=== PATIENT | female | born 1990 | race Caucasian/White ===

== ENCOUNTER 2018-10-30 01:30 | Inpatient (IN) | payer MEDICAID, SELFPAY ==
[2018-10-30] VITALS (16 sets, daily range): BP systolic 88–166; BP diastolic 46–92; PULSE 57–144; RESP 14–24; TEMP 36.3–39.5; O2SAT 94–100; BMI 20.7; BMI 24.0
--- NOTE | 2018-10-30 01:39 | ED.RN ---
PT STATES SHE IS ACHY ALL OVER AND HAS THE CHILLS. PT HAS OPEN SOARS ON HER FACE AND LEFT ARM. MANY HEALING AND SCARRED RAHMAN ON HER ARMS AND HANDS.
--- NOTE | 2018-10-30 01:41 | RAD_ITS ---
STUDY: X-RAY CHEST REASON FOR EXAM: Female, 27 years old. Fever and body aches, sores on body and face. TECHNIQUE: Single AP portable view of the chest. COMPARISON: None. FINDINGS: There are superimposed monitor leads. There is no demonstrated pneumothorax. Mild interstitial prominence. There is no demonstrated pleural abnormality. Normal size heart. Normal mediastinum and rey. Normal visualized pulmonary arteries. Normal visualized aortic arch and descending thoracic aorta. Normal visualized thoracic spine. Normal visualized ribs, clavicles, and shoulders. There is no demonstrated abnormality of the visualized soft tissue structures of the upper abdomen. RAD/Chest 1 View (Portable) IMPRESSION: Possible mild interstitial inflammation. No pulmonary edema, congestive heart failure or confluent pneumonia. Electronically Signed: Kesha Noriega MD at 3:37 EDT , Service support ,
--- NOTE | 2018-10-30 01:41 | EKG12_ITS ---
Test Reason : TACHYCARDIA Blood Pressure : / mmHG Vent. Rate : 124 BPM Atrial Rate : 124 BPM P-R Int : 124 ms QRS Dur : 084 ms QT Int : 274 ms P-R-T Axes : 050 -07 046 degrees QTc Int : 393 ms Sinus tachycardia Otherwise normal ECG Confirmed by JOSS NUNEZ, NORMA ([id number]), newspaper or periodical editor FARHAN WORTHINGTON ([id number]) on 11/01/2018 1:48:42 PM Referred By: Otis Sorto Confirmed By:JOSE COREAS MD
--- NOTE | 2018-10-30 01:43 | ED.RN ---
NO OLD EKGS IN MUSE
--- NOTE | 2018-10-30 01:45 | ED.VIS.GEN ---
History of Present Illness Chief Complaint: Fever Narrative: Patient is a 27-year-old female who presents with fever. She has been sick for about 1 day. She has had fever up to 103. She complains of diffuse pain. She complains of myalgias, arthralgias, chest pain, abdominal pain, headache. She also feels short of breath. She reports nausea without vomiting. No diarrhea. No urinary symptoms such as dysuria frequency or urgency. No cough. No congestion. She is an IV drug user, uses heroin. She denies alcohol or any other illicit drugs. She denies any medical history or daily medications. Past Medical History - Allergies and Home Meds Allergies/Adverse Reactions: Allergies No Known Allergies Allergy (Verified 10/30/18 01:35) Primary Care Physician: NOT,DEFINED [Primary Care Provider] - Past Medical History: - - IV heroin abuse Surgical History: no surgical history Smoking Status: Current every day smoker Review of Systems All systems negative except as indicated General: Reports: Fever Cardiovascular: Reports: Chest pain Respiratory: Reports: Dyspnea. Denies: Cough Gastrointestinal: Reports: Abdominal pain, Nausea. Denies: Vomiting, Diarrhea Musculoskeletal: Reports: Myalgias, Arthralgias Neurological: Reports: Headache Physical Exam Vital Signs/Narrative: Vital Signs Temp Pulse Resp BP Pulse Ox 10/30/18 01:31 103.1 F H 144 H 20 H 166/92 H 100 Inital Vital Signs reviewed: Yes General: - - Ill-appearing Head: Normocephalic Eyes: EOMI ENT: Moist mucous membranes Neck: Supple Cardiovascular: - - Heart is regular tachycardia with a 2/6 systolic murmur Respiratory: - - Tachypnea with increased work of breathing but lungs are clear without rales rhonchi or wheezes Abdomen: Soft, Nontender, Nondistended Back: Normal Inspection Extremities: Nontender, No edema Skin: - - No petechiae, [place] lesions, splinter hemorrhages Neurological: Alert, Oriented x3 Diagnostic/Tx/Re-eval 10/30/18 01:41 Chest 1 View (Portable) [RAD] Stat Laboratory Results 10/30/18 10/30/18 10/30/18 02:00 02:04 02:20 WBC 5.5 RBC 4.14 L Hgb 11.6 L Hct 34.9 L MCV 84.3 MCH 28.0 MCHC 33.2 RDW Std Deviation 39.1 RDW Coeff of Aminah 12.7 Plt Count 172 MPV 10.1 Immature Gran % (Auto) 0.600 Neut % (Auto) 84.1 H Lymph % (Auto) 13.0 L [place] % (Auto) 1.7 Eos % (Auto) 0.0 Baso % (Auto) 0.6 Absolute Neuts (auto) 4.6 Absolute Lymphs (auto) 0.71 L Nucleated RBC % 0 Differential Comment SCANNED PT INR Specimen Type ART Sample Site R Radial pH 7.52 H Bicarbonate Actual 18.4 L POC Total CO2 19 Base Excess -4 L O2 Saturation 97 ABG pCO2 22.5 L ABG pO2 75 Osmin Test POS O2 Delivery Device Room Air Blood Gas Notified Whom ED Blood Gas Notified Time 200 Sodium Potassium Chloride Carbon Dioxide Anion Gap BUN Creatinine Estim Creat Clear Calc Est GFR (MDRD) Af Amer Est GFR (MDRD) Non-Af BUN/Creatinine Ratio Glucose Lactic Acid Calcium Total Bilirubin AST ALT Alkaline Phosphatase Troponin I Total Protein Albumin Globulin Albumin/Globulin Ratio Urine Color [place] Urine Clarity Cloudy Urine pH 5.0 Ur Specific [place] 1.025 Urine Protein 30 H Urine Glucose (UA) Normal Urine Ketones 5 H Urine Occult Blood 25 H Urine Nitrite Negative Urine Bilirubin Negative Urine Urobilinogen 1 H Ur Leukocyte Esterase 500 H Urine RBC 0-5 SEEN Urine WBC 25-50 SEEN Ur Squamous Epith Cells 25-50 SEEN Urine Bacteria 3+ Urine Mucus 1+ 10/30/18 10/30/18 10/30/18 02:20 02:20 02:30 WBC RBC Hgb Hct MCV MCH MCHC RDW Std Deviation RDW Coeff of Aminah Plt Count MPV Immature Gran % (Auto) Neut % (Auto) Lymph % (Auto) [place] % (Auto) Eos % (Auto) Baso % (Auto) Absolute Neuts (auto) Absolute Lymphs (auto) Nucleated RBC % Differential Comment PT 15.4 H INR 1.2 Specimen Type Sample Site pH Bicarbonate Actual POC Total CO2 Base Excess O2 Saturation ABG pCO2 ABG pO2 Osmin Test O2 Delivery Device Blood Gas Notified Whom Blood Gas Notified Time Sodium 128 L Potassium 3.1 L Chloride 95 L Carbon Dioxide 24.0 Anion Gap 9 BUN 10 Creatinine 0.89 Estim Creat Clear Calc 86.49 Est GFR (MDRD) Af Amer 98 Est GFR (MDRD) Non-Af 81 BUN/Creatinine Ratio 11.2 Glucose 137 H Lactic Acid 3.0 H Calcium 8.3 L Total Bilirubin 0.60 AST 33 ALT 45 Alkaline Phosphatase 106 Troponin I < 0.015 Total Protein 7.1 Albumin 2.9 L Globulin 4.2 Albumin/Globulin Ratio 0.7 L Urine Color Urine Clarity Urine pH Ur Specific [place] Urine Protein Urine Glucose (UA) Urine Ketones Urine Occult Blood Urine Nitrite Urine Bilirubin Urine Urobilinogen Ur Leukocyte Esterase Urine RBC Urine WBC Ur Squamous Epith Cells Urine Bacteria Urine Mucus - Medical Decision Making Patient is ill-appearing. Concern is for bacteremia with her history of IV drug abuse. Given that she does have a systolic murmur I am also concerned for the possibility of infective endocarditis. She was treated with aggressive IV fluid hydration and empirically given Zosyn and vancomycin. EKG shows sinus tachycardia at a rate of 124. ABG, pH is 7.52. Labs notable for lactic acid of 3.0 and urinalysis suggestive of UTI although contaminated. Blood and urine cultures were sent. On reevaluation temperature is down to 100.3 heart rate improved to 100-110. She has maintained a stable blood pressure. Patient will be discussed with the hospitalist and admitted for further work-up and treatment. ED Disposition - Plan for ED Patient: Disposition: Acute Care Hospital [facility] Diagnosis: Severe sepsis, IV drug abuse Referrals: NOT,DEFINED [Primary Care Provider] -
[2018-10-30 02:11] LABS: Allen Test POS; Base Excess -4 mmol/L (-2 to +2); Bicarbonate 18.4 mmol/L (22-26); Blood Gas Specimen Type ART; O2 Delivery Device Room Air; PO2 75 mmHG (75-100); SITE R Radial; SO2 97 % (95-99); Time Given 200; Total Carbon Dioxide 19 mmol/L; pCO2 22.5 mmHg (35-45); pH 7.52 (7.35-7.45)
[2018-10-30 02:18] LABS: Color, Urine Amber (Yellow); Glucose, Dipstick Normal (Normal); Ketone-Dipstick 5 mg/dl (Negative); Leukocyte Esterase-Dipstick 500 /ul (Negative); Nitrite-Dipstick Negative (Negative); Occult Blood-Urine 25 /ul (Negative); Protein-Dipstick 30 mg/dl (Negative); Specific Gravity, Urine 1.025 (1.002-1.030); Urine Bilirubin Dipstick Negative (Negative); Urine Clarity Cloudy (Clear); Urine Urobilinogen 1 mg/dl (Normal)
[2018-10-30] MEDS: 0.9% Normal Saline 1,000 ML 999 ML IV ×2 (02:18→02:47)
[2018-10-30] MEDS: Ondansetron 4 MG/2 ML Vial IV (02:20)
[2018-10-30] MEDS: Ketorolac 30 MG/ML Syringe IV (02:20)
[2018-10-30 02:29] LABS: Absolute Lymphocyte Count 0.71 X10^3/uL (0.83-4.51); Absolute Neutrophil Count 4.6 X10^3/uL (2.0-7.7); Basophil# 0.03 X10^3/uL; Basophil% 0.6 % (0-1); Hematocrit 34.9 % (37-47); Hemoglobin 11.6 g/dL (12.0-15.0); Lymphocyte # 0.71 X10^3/ul (4.0); Mean Corp Hgb Conc 33.2 g/dL (32-36); Mean Corpuscular Volume 84.3 fL (81-99); Mean Platelet Vol. 10.1 fl (6.2-12.0); Monocyte# 0.09 X10^3/uL; Monocyte% 1.7 % (0-10); NRBC Flagged by Analyzer 0 % (0-5); Neutrophil # 4.59 X10^3/uL (2.7-7.7); Neutrophil % 84.1 % (47-70); POSITIVE MORPHOLOGY YES; Platelet Count 172 K/mm3 (150-450); RBC Distribution Width CV 12.7 % (11.6-14.6); RBC Distribution Width SD 39.1 fl (35.1-43.9); Red Blood Count 4.14 M/mm3 (4.2-5.4); White Blood Count 5.5 K/mm3 (4.4-11.0)
[2018-10-30 02:29] LABS: Bacteria 3+ /hpf (None Seen); Mucous, Urine 1+ /hpf (<or=2+); Red Blood Cells-Urine 0-5 SEEN /hpf (0-5); White Blood Cells 25-50 SEEN /hpf (0-5)
[2018-10-30 02:30] LABS: Squamous Epithelial Cells - UA 25-50 SEEN /hpf (5-10)
[2018-10-30 02:33] LABS: Differential Indicated SCAN CRITERIA MET
[2018-10-30 02:39] LABS: International Normalized Ratio 1.2; Prothrombin Time (Protime)PT. 15.4 SECONDS (11.7-14.9)
[2018-10-30] MEDS: Acetaminophen 500 MG Tablet 1000 MG PO (02:48)
[2018-10-30 02:50] LABS: ALB/GLOB Ratio 0.7 RATIO (0.9-2.4); AST(SGOT) 33 U/L (15-37); Alanine Aminotransfer ALT/SGPT 45 U/L (13-56); Albumin, Serum 2.9 g/dL (3.2-5.0); Alkaline Phosphatase 106 U/L (45-117); Anion Gap 9 (5-15); BUN 10 mg/dL (7-18); BUN/Creat Ratio 11.2 RATIO (10-20); Calcium,Total 8.3 mg/dL (8.5-10.1); Chloride 95 mmol/L (98-107); Creatinine, Serum 0.89 mg/dL (0.55-1.02); EST Glomerular Filtration Rate 81 mL/min (>60); Est Glom Filt Rate - Afr Amer 98 mL/min (>60); Estimated Creatinine Clearance 86.49 ml/min; Globulin 4.2 g/dL (2.2-4.2); Glucose 137 mg/dL (74-106); Potassium 3.1 mmol/L (3.5-5.1); Protein, Total 7.1 g/dL (6.4-8.2); Sodium Level 128 mmol/L (136-145)
[2018-10-30 02:51] LABS: Differential Comment SCANNED
--- NOTE | 2018-10-30 05:02 | HP.PCM_ITS ---
Problem List (1) IV drug abuse Status: Acute (2) Severe sepsis Status: Acute History of Present Illness Date of Admission: 10/30/18 Chief Complaint: fever The patient is a 27 year old F with a significant history of IV drug use who presented to the emergency department because of a fever of 103 at home.. Associated with her symptoms is chills and rigors. Her symptoms started about 2-1/2 days. Further she reports chest pain; shortness of breath; nausea; back pain; lower abdominal pain and a feeling of incomplete emptying of her bladder; and urinary retention. In regards to her IV drug use head drug of choice is heroin. She reported that she had been sober for about 5 years. She returned from prison on October 09, 2018 and began using heroin again. She shoots heroin into her right arm and into her bilateral legs. Emergent department doctor reported that it was difficult getting IV access in her arms. However eventually IV IV access could be found. Emergency department doctor reported hearing a systolic murmur of 2 out of 6. At the emergency department patient had highest temperature of 103.1 Fahrenheit. Also she had tachycardia. At the emergency department her urinalysis was abnormal however she had numerous epithelial cells in her urine. She was also found to have low potassium and severely elevated lactic acid of 3.0. Past Medical History Medical History: Medical History (Last Updated 10/30/18 @ 05:29 by Otis Sorto MD) IV drug user F19.90 Allergies No Known Allergies Allergy (Verified 10/30/18 01:35) Home Medications: Ambulatory Orders Medication Instructions Recorded NK 10/30/18 Surgical History: - - I&D from abscess acquired through IV drug use Lives: Spouse/ Significant Other Smoking Status: Current every day smoker Tobacco Use: Cigarettes Alcohol: None Drugs: Heroin - *Family History Maternal History Items: Cancer - Lung and brain cancer Paternal History Items: Diabetes Review of Systems Constitutional: Reports: Chills, Fever, Malaise. Denies: Weight Change HEENT: Denies: Head Aches, Sinus Congestion, Sinus Drainage Cardiovascular: Reports: Chest Pain. Denies: Palpitations Respiratory: Reports: Shortness of Breath. Denies: Cough, Sputum production Gastrointestinal: Reports: Abdominal Pain, Nausea. Denies: Vomiting Genitourinary: Reports: Retention. Denies: Dysuria Musculoskeletal: Denies: Joint Pain, Joint Tenderness Skin: Denies: Dryness, Jaundice Neurological: Denies: Numbness, Tingling, Focal weakness Psychiatric: Denies: Homicidal Ideations, Suicidal Ideations Hematologic/ Lymphatic: Denies: Easy Bruising, Easy Bleeding VTE Information - Inpt Only VTE Present on Admission: No VTE Mechan Device Prophylaxis: None VTE Pharm Prophylaxis ordered?: No Reason prophylaxis not ordered:: Treatment Not Indicated - Low risk Patient Problems: Active and Suspected Problems (Last Updated 10/30/18 @ 05:29 by Otis Sorto MD) Severe sepsis (Acute) IV drug abuse (Acute) - Physical Exam General: Alert, Oriented x3, Cooperative HEENT: Atraumatic, PERRLA, EOMI, Normocephalic Neck: Supple, No JVD, Negative Carotid Bruits Lungs: Clear to auscultation, Normal air movement Cardiovascular: Normal S1, Normal S2, Tachycardic Abdomen: Bowel Sounds Present, Soft, Non Tender Extremities: No edema, Capillary Refill Less than 3 Seconds Skin: No breakdown, - - Needle track [place] on right upper extremity and bilateral feet Musculoskeletal: No Tenderness to Palpation of Joints or Extremities Neurological: Cranial nerves II-XII grossly intact Psych/Mental Status: Anxious Vital Signs Temp Pulse Resp BP Pulse Ox 100.3 F H 96 20 H 134/65 H 99 10/30/18 04:03 10/30/18 04:03 10/30/18 04:03 10/30/18 04:03 10/30/18 04:03 Oxygen Delivery Method Room Air Weight: 65.4 kg Body Mass Index (BMI) 24.0 Intake and Output for Last 24 Hours 10/28/18 10/29/18 10/30/18 23:59 23:59 23:59 Intake Total 532.85 / 532.85 Balance 532.85 / 532.85 Laboratory Tests Past 24 Hrs 10/30/18 10/30/18 10/30/18 02:00 02:04 02:20 WBC 5.5 RBC 4.14 L Hgb 11.6 L Hct 34.9 L MCV 84.3 MCH 28.0 MCHC 33.2 RDW Std Deviation 39.1 RDW Coeff of Aminah 12.7 Plt Count 172 MPV 10.1 Immature Gran % (Auto) 0.600 Neut % (Auto) 84.1 H Lymph % (Auto) 13.0 L [place] % (Auto) 1.7 Eos % (Auto) 0.0 Baso % (Auto) 0.6 Absolute Neuts (auto) 4.6 Absolute Lymphs (auto) 0.71 L Nucleated RBC % 0 Differential Comment SCANNED PT INR Specimen Type ART Sample Site R Radial pH 7.52 H Bicarbonate Actual 18.4 L POC Total CO2 19 Base Excess -4 L O2 Saturation 97 ABG pCO2 22.5 L ABG pO2 75 Osmin Test POS O2 Delivery Device Room Air Blood Gas Notified Whom ED MD Blood Gas Notified Time 200 Sodium Potassium Chloride Carbon Dioxide Anion Gap BUN Creatinine Estim Creat Clear Calc Est GFR (MDRD) Af Amer Est GFR (MDRD) Non-Af BUN/Creatinine Ratio Glucose Lactic Acid Calcium Total Bilirubin AST ALT Alkaline Phosphatase Troponin I Total Protein Albumin Globulin Albumin/Globulin Ratio Urine Color [place] Urine Clarity Cloudy Urine pH 5.0 Ur Specific [place] 1.025 Urine Protein 30 H Urine Glucose (UA) Normal Urine Ketones 5 H Urine Occult Blood 25 H Urine Nitrite Negative Urine Bilirubin Negative Urine Urobilinogen 1 H Ur Leukocyte Esterase 500 H Urine RBC 0-5 SEEN Urine WBC 25-50 SEEN Ur Squamous Epith Cells 25-50 SEEN Urine Bacteria 3+ Urine Mucus 1+ 10/30/18 10/30/18 10/30/18 02:20 02:20 02:30 WBC RBC Hgb Hct MCV MCH MCHC RDW Std Deviation RDW Coeff of Aminah Plt Count MPV Immature Gran % (Auto) Neut % (Auto) Lymph % (Auto) [place] % (Auto) Eos % (Auto) Baso % (Auto) Absolute Neuts (auto) Absolute Lymphs (auto) Nucleated RBC % Differential Comment PT 15.4 H INR 1.2 Specimen Type Sample Site pH Bicarbonate Actual POC Total CO2 Base Excess O2 Saturation ABG pCO2 ABG pO2 Osmin Test O2 Delivery Device Blood Gas Notified Whom Blood Gas Notified Time Sodium 128 L Potassium 3.1 L Chloride 95 L Carbon Dioxide 24.0 Anion Gap 9 BUN 10 Creatinine 0.89 Estim Creat Clear Calc 86.49 Est GFR (MDRD) Af Amer 98 Est GFR (MDRD) Non-Af 81 BUN/Creatinine Ratio 11.2 Glucose 137 H Lactic Acid 3.0 H Calcium 8.3 L Total Bilirubin 0.60 AST 33 ALT 45 Alkaline Phosphatase 106 Troponin I < 0.015 Total Protein 7.1 Albumin 2.9 L Globulin 4.2 Albumin/Globulin Ratio 0.7 L Urine Color Urine Clarity Urine pH Ur Specific [place] Urine Protein Urine Glucose (UA) Urine Ketones Urine Occult Blood Urine Nitrite Urine Bilirubin Urine Urobilinogen Ur Leukocyte Esterase Urine RBC Urine WBC Ur Squamous Epith Cells Urine Bacteria Urine Mucus Assessment/Plan All Active Problems (Last Updated 10/30/18 @ 05:29 by Otis Sorto MD) Severe sepsis (Acute) IV drug abuse (Acute) The patient is a 27 year old F with a significant history of IV drug use who presented to the emergency department because of a fever of 103 at home; nausea; malaise; chills; rigors; chest pain; shortness of breath; back pain; lower abdominal pain and a feeling of incomplete emptying of her bladder; urinary retention; tachycardia; fever of 103.1 Fahrenheit at the hospital; and reported murmur consistent severe sepsis . Severe sepsis Likely etiology is from infective endocarditis. Less likely from UTI. SIRS criteria: T-max of 103.1 at the hospital; tachycardia; Severe sepsis and lactic acid is more than 2 Noted to have low albumin; acute phase reactant Systolic Murmur was heard by the emergency department doctor Blood cultures x3 was drawn at the emergency department; follow Urine culture was obtained in the emergency department follow Trend lactic acid Patient received vancomycin and Zosyn in the emergency department. Continue vancomycin pharmacy to dose for infective endocarditis. Start patient on ceftriaxone 2 g daily Get an echocardiogram Trend CBC and BMP Tylenol PRN for fever Consult infectious disease to optimize management Hypokalemia Potassium supplementation ordered Normal saline with potassium ordered Trend BMP Check magnesium level Tobacco abuse Counseled Nicotine patch ordered IV drug use Counseled Reportedly she has been of the right foot 1/2 days. Monitor clinically and if indicated consider detoxification medications. PRN Zofran ordered DVT prophylaxis Low risk Encourage ambulate Code Visit Inpatient E&M: 29656 Init Hosp L3
--- NOTE | 2018-10-30 05:02 | SEPSISNOTE ---
Sepsis Note - Physical Exam/Vitals Objective: Chest X-Ray 10/30/18 01:41 IMPRESSION: Possible mild interstitial inflammation. No pulmonary edema, congestive heart failure or confluent pneumonia. Electronically Signed: Kesha Noriega MD at 3:37 EDT , Service support , Temp Pulse Resp BP Pulse Ox 100.3 F H 96 20 H 134/65 H 99 10/30/18 04:03 10/30/18 04:03 10/30/18 04:03 10/30/18 04:03 10/30/18 04:03 10/30/18 10/30/18 10/30/18 02:30 02:20 02:20 WBC RBC Hgb Hct MCV MCH MCHC RDW Std Deviation RDW Coeff of Aminah Plt Count MPV Immature Gran % (Auto) Neut % (Auto) Lymph % (Auto) [place] % (Auto) Eos % (Auto) Baso % (Auto) Absolute Neuts (auto) Absolute Lymphs (auto) Nucleated RBC % Differential Comment PT 15.4 H INR 1.2 Specimen Type Sample Site pH Bicarbonate Actual POC Total CO2 Base Excess O2 Saturation ABG pCO2 ABG pO2 Osmin Test O2 Delivery Device Blood Gas Notified Whom Blood Gas Notified Time Sodium 128 L Potassium 3.1 L Chloride 95 L Carbon Dioxide 24.0 Anion Gap 9 BUN 10 Creatinine 0.89 Estim Creat Clear Calc 86.49 Est GFR (MDRD) Af Amer 98 Est GFR (MDRD) Non-Af 81 BUN/Creatinine Ratio 11.2 Glucose 137 H Lactic Acid 3.0 H Calcium 8.3 L Total Bilirubin 0.60 AST 33 ALT 45 Alkaline Phosphatase 106 Troponin I < 0.015 Total Protein 7.1 Albumin 2.9 L Globulin 4.2 Albumin/Globulin Ratio 0.7 L Urine Color Urine Clarity Urine pH Ur Specific [place] Urine Protein Urine Glucose (UA) Urine Ketones Urine Occult Blood Urine Nitrite Urine Bilirubin Urine Urobilinogen Ur Leukocyte Esterase Urine RBC Urine WBC Ur Squamous Epith Cells Urine Bacteria Urine Mucus 10/30/18 10/30/18 10/30/18 02:20 02:04 02:00 WBC 5.5 RBC 4.14 L Hgb 11.6 L Hct 34.9 L MCV 84.3 MCH 28.0 MCHC 33.2 RDW Std Deviation 39.1 RDW Coeff of Aminah 12.7 Plt Count 172 MPV 10.1 Immature Gran % (Auto) 0.600 Neut % (Auto) 84.1 H Lymph % (Auto) 13.0 L [place] % (Auto) 1.7 Eos % (Auto) 0.0 Baso % (Auto) 0.6 Absolute Neuts (auto) 4.6 Absolute Lymphs (auto) 0.71 L Nucleated RBC % 0 Differential Comment SCANNED PT INR Specimen Type ART Sample Site R Radial pH 7.52 H Bicarbonate Actual 18.4 L POC Total CO2 19 Base Excess -4 L O2 Saturation 97 ABG pCO2 22.5 L ABG pO2 75 Osmin Test POS O2 Delivery Device Room Air Blood Gas Notified Whom ED MD Blood Gas Notified Time 200 Sodium Potassium Chloride Carbon Dioxide Anion Gap BUN Creatinine Estim Creat Clear Calc Est GFR (MDRD) Af Amer Est GFR (MDRD) Non-Af BUN/Creatinine Ratio Glucose Lactic Acid Calcium Total Bilirubin AST ALT Alkaline Phosphatase Troponin I Total Protein Albumin Globulin Albumin/Globulin Ratio Urine Color [place] Urine Clarity Cloudy Urine pH 5.0 Ur Specific [place] 1.025 Urine Protein 30 H Urine Glucose (UA) Normal Urine Ketones 5 H Urine Occult Blood 25 H Urine Nitrite Negative Urine Bilirubin Negative Urine Urobilinogen 1 H Ur Leukocyte Esterase 500 H Urine RBC 0-5 SEEN Urine WBC 25-50 SEEN Ur Squamous Epith Cells 25-50 SEEN Urine Bacteria 3+ Urine Mucus 1+ General: Alert Lungs: Clear to auscultation, Normal air movement Cardiovascular: Tachycardic Capillary Refill: <3 seconds Peripheral Pulses: Normal Skin Color: [place] - Assessment/Plan Severe sepsis?etiology likely infective endocarditis; less likely UTI Although not in septic shock patient received IV fluids bolus at the emergency department. Blood cultures x3 was obtained at the emergency department; follow Urine culture was obtained emergency department; follow Patient was started on broad-spectrum antibiotic vancomycin and Zosyn in the emergency department. We will continue patient on vancomycin and ceftriaxone. Lactic acid was elevated at the emergency department; Trend. Echocardiogram has been ordered. Infectious disease specialist will be consulted. Tylenol for fever.
--- NOTE | 2018-10-30 05:26 | PCM.RX.CS ---
Consult Pharmacy has been consulted to manage selected antiobiotic: Vancomycin Type of Consult: New start Suspected Infection: Sepsis Labs: Sodium 128 mmol/L (136-145) L 10/30/18 02:20 Potassium 3.1 mmol/L (3.5-5.1) L 10/30/18 02:20 Chloride 95 mmol/L (98-107) L 10/30/18 02:20 Carbon Dioxide 24.0 mmol/L (21.0-32.0) 10/30/18 02:20 Anion Gap 9 (5-15) 10/30/18 02:20 BUN 10 mg/dL (7-18) 10/30/18 02:20 Creatinine 0.89 mg/dL (0.55-1.02) 10/30/18 02:20 Est GFR (MDRD) Af Amer 98 mL/min (>60) 10/30/18 02:20 Est GFR (MDRD) Non-Af 81 mL/min (>60) 10/30/18 02:20 BUN/Creatinine Ratio 11.2 RATIO (10-20) 10/30/18 02:20 Glucose 137 mg/dL (74-106) H 10/30/18 02:20 Weight used for dosin.4 kg Estimated Creatinine Clearance: 86.5 Goal Trough: 15-20 mcg/mL Pharmacy Plan for Drug Dosing: Pharmacy Service will continue to monitor and adjust dosing as required. Medications Vancomycin HCl 1,250 mg/ (Sodium Chloride) 275 mls @ 167 mls/hr IV Q12H CHRISTINE Discontinued Medications Vancomycin HCl 750 mg/ Sodium (Chloride) 265 mls @ 250 mls/hr IV X1 ONE Stop: 10/30/18 03:13 Last Admin: 10/30/18 05:15 Dose: Infused Documented by: Follow-Up Labs: Trough Vancomycin Labs to be done on [date and time ordered]: 10/31 @ 2213
--- NOTE | 2018-10-30 05:55 | ECHOD_ITS ---
Reason For Study: R/O Endocarditis Procedure This was a 2D Doppler, Color Flow transthoracic echocardiogram. Exam performed portable in patient room. Left Ventricle Normal size and thickness. The estimated ejection fraction is 65 %. Normal diastology for age. No regional wall motion abnormalities noted. Right Ventricle Normal size and thickness. Normal systolic function. Atria Normal left atrium. Normal right atrium. Normal atrial septum. Mitral Valve The mitral valve is structurally normal. No prolapse or stenosis seen. Trivial mitral valve insufficiency. Tricuspid Valve Normal tricuspid valve. Trivial tricuspid valve insufficiency. Unable to estimate RV systolic pressure due to insufficient tricuspid regurgitant envelope. Aortic Valve Normal aortic valve. Trisinus/trileaflet aortic valve. Pulmonic Valve Normal pulmonic valve. Trivial pulmonic valve insufficiency. Great Vessels Normal aortic root. Normal arch. Normal inferior vena cava. Inferior vena cava collapse with sniff. Pericardium/Pleural No pericardial effusion. MMode/2D Measurements & Calculations LVIDd: 4.7 cm IVSd: 0.79 cm Ao root diam: 2.5 cm LVIDs: 2.9 cm LVPWd: 0.87 cm RVDd: 2.7 cm FS: 37.5 % LAV(MOD-bp): 44.0 ml LVAd ap4: 20.6 cm2 SV(MOD-sp4): 30.6 ml LAV(MOD-bp) Indexed: 25.6 ml/m2 EDV(MOD-sp4): 52.0 ml LAV(MOD-sp2): 43.2 ml EDV(sp4-el): 52.4 ml LAV(MOD-sp4): 40.7 ml LVAs ap4: 12.1 cm2 ESV(MOD-sp4): 21.4 ml ESV(sp4-el): 21.2 ml EF(MOD-sp4): 58.8 % EF(sp4-el): 59.6 % SV(sp4-el): 31.2 ml LA A4 area: 16.1 cm2 LA dimension(2D): 3.4 cm RA A4 area: 11.4 cm2 Doppler Measurements & Calculations MV E max ankit: 98.8 cm/sec Lat Peak E' Ankit: 14.5 cm/sec Med Peak E' Ankit: 12.6 cm/sec MV A max ankit: 49.2 cm/sec E/E' lat: 6.8 E/E' med: 7.8 MV E/A: 2.0 Ao V2 max: 123.4 cm/sec LV V1 max: 104.5 cm/sec PA V2 max: 96.1 cm/sec Ao max P.1 mmHg LV V1 max P.4 mmHg Interpretation Summary The estimated ejection fraction is 65 %. Normal diastology for age. Trivial mitral valve insufficiency. Trivial tricuspid valve insufficiency. Unable to estimate RV systolic pressure due to insufficient tricuspid regurgitant envelope. No echo evidence of bacterial vegeations. There is no comparison study available. Ordering Physician: Otis Sorto Referring Physician: Otis Sorto Performed By: Radha Galicia RDCS
[2018-10-30 06:32] LABS: Reflex Lactate? Y
[2018-10-30 07:24] LABS: Lactic Acid 0.8 mmol/L (0.4-2.0)
[2018-10-30] MEDS: 0.9% NaCl IVPB Med Flush (250 mL) 15 ML IV (09:27)
[2018-10-30] MEDS: 0.9% NaCl Peripheral Flush Adult/Peds IV (10:30)
[2018-10-30] MEDS: Buprenorphine HCl 2 MG TAB.SUBL SL ×2 (11:16→18:13)
[2018-10-30] MEDS: 0.9% Normal Saline 1,000 ML 150 ML IV (11:16)
--- NOTE | 2018-10-30 11:43 | CASEMGMT ---
Shaw FLEMING assessment: Face to Face with patient for initial transition planning/care coordination assessment. SHAW FLEMING introduced self and role at [facility], pt voices understanding and consents to assessment. Pt is lying in bed in no distress at this time. Pt is A/Ox4 at this time and answers all questions appropriately at this time. Pt's sig other is at bedside during assessment. Care providers, pharmacy, and demographics verified/updated at this time. PCP: Pt states does not have PCP currently but is willing to have list of local in-network PCP's. Specialists: Pt states currently has no specialists. Preferred Pharmacy: [facility] retail pharmacy Insurance: [employer] Prescription Benefit: [employer] Living Will/HPOA: Pt states does not have LW/HPOA and declines need for info at this time. LNOK: Thea Boyce, sig other Living Arrangements: Pt states lives with sig other in house and states no concerns at home at this time. Pt states is independent with ADL's. Transportation: Pt states drives self and states no transportation concerns at this time. DME/HHC: Pt states has no current DME or need for any at this time. Pt states no hx of HHC or SNF in the past. Pt states no concerns with going home at time of discharge. Pt states is currently unemployed. Pt states smokes 1/2 pack/day and drinks ETOH occasionally. Pt states that she is a heroin addict and had been clean for 4 years but just started using again [facility]. Pt states has not used in 3 days. Shawn SW is aware about drug abuse, voices understanding. Pt Goal: Home Plan[place]
[2018-10-30] MEDS: hydrOXYzine PAM 25 MG Capsule 50 MG PO (12:10)
--- NOTE | 2018-10-30 12:11 | EKG12_ITS ---
Test Reason : Blood Pressure : / mmHG Vent. Rate : 064 BPM Atrial Rate : 064 BPM P-R Int : 136 ms QRS Dur : 070 ms QT Int : 462 ms P-R-T Axes : 061 045 039 degrees QTc Int : 476 ms Normal sinus rhythm Normal ECG Confirmed by MARTHA NUNEZ, PAMELA ([id number]), tape editor SONNY MARTINEZ ([id number]) on 11/01/2018 2:23:20 PM Referred By: Otis Sorto Confirmed By:PAMELA THOMAS MD
--- NOTE | 2018-10-30 15:11 | CON.PCM_ITS ---
Problem List (1) Severe sepsis Status: Acute Reason for Consult: sepsis Consulted by: Dr. Solo History of Present Illness: The patient is a 27 year old F with h/o IVDU and hep C Ab (+) who presented with 3 days of fever, chills, aches, difficulty urinating, headache/migraines. No dysuria. Some L flank pain. Recently got out of detention and restarted injecting. Denies sharing needles. Does re-use needles, does lick her needles, does use tap water. Came to ED, fever to 103.1, admitted on vanc/ceftriaxone, feeling a lot better. No abscess at current injection sites. Full ROS performed and neg except as noted above. - Medical History Surgical History: includes iVDU hep C Allergies/Adverse Reactions: Allergies No Known Allergies Allergy (Verified 10/30/18 01:35) Home Medications: Ambulatory Orders Medication Instructions Recorded NK 10/30/18 - Social History Tobacco Use: cigarettes Drug Use: heroin Vital Signs Temp Pulse Resp BP Pulse Ox 97.7 F L 71 16 92/56 L 100 10/30/18 12:03 10/30/18 15:00 10/30/18 12:03 10/30/18 12:03 10/30/18 12:03 Oxygen Delivery Method Room Air Weight: 65.4 kg Body Mass Index (BMI) 24.0 Microbiology Past 72 Hours 10/30/18 02:45 Blood Culture - Preliminary Blood Culture (Wb) - Arm Left Laboratory Tests Past 24 Hrs 10/30/18 10/30/18 10/30/18 02:00 02:04 02:20 WBC 5.5 RBC 4.14 L Hgb 11.6 L Hct 34.9 L MCV 84.3 MCH 28.0 MCHC 33.2 RDW Std Deviation 39.1 RDW Coeff of Aminah 12.7 Plt Count 172 MPV 10.1 Immature Gran % (Auto) 0.600 Neut % (Auto) 84.1 H Lymph % (Auto) 13.0 L [place] % (Auto) 1.7 Eos % (Auto) 0.0 Baso % (Auto) 0.6 Absolute Neuts (auto) 4.6 Absolute Lymphs (auto) 0.71 L Nucleated RBC % 0 Differential Comment SCANNED PT INR Specimen Type ART Sample Site R Radial pH 7.52 H Bicarbonate Actual 18.4 L POC Total CO2 19 Base Excess -4 L O2 Saturation 97 ABG pCO2 22.5 L ABG pO2 75 Osmin Test POS O2 Delivery Device Room Air Blood Gas Notified Whom ED Blood Gas Notified Time 200 Sodium Potassium Chloride Carbon Dioxide Anion Gap BUN Creatinine Estim Creat Clear Calc Est GFR (MDRD) Af Amer Est GFR (MDRD) Non-Af BUN/Creatinine Ratio Glucose Lactic Acid Calcium Total Bilirubin AST ALT Alkaline Phosphatase Troponin I Total Protein Albumin Globulin Albumin/Globulin Ratio Urine Color [place] Urine Clarity Cloudy Urine pH 5.0 Ur Specific [place] 1.025 Urine Protein 30 H Urine Glucose (UA) Normal Urine Ketones 5 H Urine Occult Blood 25 H Urine Nitrite Negative Urine Bilirubin Negative Urine Urobilinogen 1 H Ur Leukocyte Esterase 500 H Urine RBC 0-5 SEEN Urine WBC 25-50 SEEN Ur Squamous Epith Cells 25-50 SEEN Urine Bacteria 3+ Urine Mucus 1+ 10/30/18 10/30/18 10/30/18 02:20 02:20 02:30 WBC RBC Hgb Hct MCV MCH MCHC RDW Std Deviation RDW Coeff of Aminah Plt Count MPV Immature Gran % (Auto) Neut % (Auto) Lymph % (Auto) [place] % (Auto) Eos % (Auto) Baso % (Auto) Absolute Neuts (auto) Absolute Lymphs (auto) Nucleated RBC % Differential Comment PT 15.4 H INR 1.2 Specimen Type Sample Site pH Bicarbonate Actual POC Total CO2 Base Excess O2 Saturation ABG pCO2 ABG pO2 Osmin Test O2 Delivery Device Blood Gas Notified Whom Blood Gas Notified Time Sodium 128 L Potassium 3.1 L Chloride 95 L Carbon Dioxide 24.0 Anion Gap 9 BUN 10 Creatinine 0.89 Estim Creat Clear Calc 86.49 Est GFR (MDRD) Af Amer 98 Est GFR (MDRD) Non-Af 81 BUN/Creatinine Ratio 11.2 Glucose 137 H Lactic Acid 3.0 H Calcium 8.3 L Total Bilirubin 0.60 AST 33 ALT 45 Alkaline Phosphatase 106 Troponin I < 0.015 Total Protein 7.1 Albumin 2.9 L Globulin 4.2 Albumin/Globulin Ratio 0.7 L Urine Color Urine Clarity Urine pH Ur Specific [place] Urine Protein Urine Glucose (UA) Urine Ketones Urine Occult Blood Urine Nitrite Urine Bilirubin Urine Urobilinogen Ur Leukocyte Esterase Urine RBC Urine WBC Ur Squamous Epith Cells Urine Bacteria Urine Mucus 10/30/18 06:45 WBC RBC Hgb Hct MCV MCH MCHC RDW Std Deviation RDW Coeff of Aminah Plt Count MPV Immature Gran % (Auto) Neut % (Auto) Lymph % (Auto) [place] % (Auto) Eos % (Auto) Baso % (Auto) Absolute Neuts (auto) Absolute Lymphs (auto) Nucleated RBC % Differential Comment PT INR Specimen Type Sample Site pH Bicarbonate Actual POC Total CO2 Base Excess O2 Saturation ABG pCO2 ABG pO2 Osmin Test O2 Delivery Device Blood Gas Notified Whom Blood Gas Notified Time Sodium Potassium Chloride Carbon Dioxide Anion Gap BUN Creatinine Estim Creat Clear Calc Est GFR (MDRD) Af Amer Est GFR (MDRD) Non-Af BUN/Creatinine Ratio Glucose Lactic Acid 0.8 Calcium Total Bilirubin AST ALT Alkaline Phosphatase Troponin I Total Protein Albumin Globulin Albumin/Globulin Ratio Urine Color Urine Clarity Urine pH Ur Specific [place] Urine Protein Urine Glucose (UA) Urine Ketones Urine Occult Blood Urine Nitrite Urine Bilirubin Urine Urobilinogen Ur Leukocyte Esterase Urine RBC Urine WBC Ur Squamous Epith Cells Urine Bacteria Urine Mucus - Other Studies Radiology: [] reviewed Other Studies: [] Route of nutrition/ use of supplements: [] Nutritional Intake: [] IV Site: [] Saab Catheter: [] - Physical Exam General: Alert, Oriented x3, Cooperative, No apparent distress HEENT: Atraumatic, PERRLA, EOMI Neck: Supple, No Nodes Lungs: Clear to auscultation, Normal air movement Cardiovascular: Regular rate, Regular Rhythm, Murmur Abdomen: Soft, Non Tender, Non-Distended, - - L flank pain Extremities: No edema Skin: No rashes, - - injection sites on R forearm and bilateral ankles, no cellulitis Musculoskeletal: No Tenderness to Palpation of Joints or Extremities Neurological: Cranial nerves II-XII grossly intact - Assessment/Plan Antibiotics: [] Assessment/Plan: [] Active and Suspected Problems (Last Updated 10/30/18 @ 05:29 by Otis Sorto MD) Severe sepsis (Acute) IV drug abuse (Acute) severe sepsis due to suspected pyelonephritis with active IVDU - improving, cont vanc/ceftriaxone while cxs pending. TTE showed no veg. hep C Ab - check hiv. Check hcv pcr to see if she has active disease. Will follow, thank you.
--- NOTE | 2018-10-30 16:51 | PCM.PN.BLA ---
Progress Note 27-year-old with IV drug user who was admitted with fever has been managed as severe sepsis, possible endocarditis Patient is an active withdrawal. Started on opioid withdrawal protocol She is hypokalemic, potassium is being replaced, recheck tomorrow Infectious disease consulted. 2D echo shows no valvular lesions We will continue on IV vancomycin and ceftriaxone Follow-up on blood cultures
[2018-10-31] VITALS (12 sets, daily range): BP systolic 92–107; BP diastolic 50–57; PULSE 73–102; RESP 14–18; TEMP 36.7–37.4; O2SAT 94–100
[2018-10-31] MEDS: Buprenorphine HCl 2 MG TAB.SUBL SL ×3 (03:25→18:20)
[2018-10-31 06:02] LABS: Absolute Lymphocyte Count 1.64 X10^3/uL (0.83-4.51); Absolute Neutrophil Count 4.5 X10^3/uL (2.0-7.7); Basophil# 0.02 X10^3/uL; Basophil% 0.3 % (0-1); Eosinophil# 0.07 X10^3/uL; Hematocrit 32.8 % (37-47); Hemoglobin 10.6 g/dL (12.0-15.0); Lymphocyte # 1.64 X10^3/ul (4.0); Lymphocyte % 24.2 % (19-41); Mean Corp Hgb Conc 32.3 g/dL (32-36); Mean Corpuscular Hgb 27.4 pg (27.0-32.0); Mean Corpuscular Volume 84.8 fL (81-99); Mean Platelet Vol. 10.7 fl (6.2-12.0); Monocyte# 0.48 X10^3/uL; Monocyte% 7.1 % (0-10); NRBC Flagged by Analyzer 0 % (0-5); Neutrophil # 4.54 X10^3/uL (2.7-7.7); Platelet Count 173 K/mm3 (150-450); RBC Distribution Width CV 13.4 % (11.6-14.6); Red Blood Count 3.87 M/mm3 (4.2-5.4); White Blood Count 6.8 K/mm3 (4.4-11.0)
[2018-10-31 06:25] LABS: Anion Gap 5 (5-15); BUN 8 mg/dL (7-18); BUN/Creat Ratio 18.1 RATIO (10-20); Calcium,Total 7.6 mg/dL (8.5-10.1); Chloride 113 mmol/L (98-107); Creatinine, Serum 0.44 mg/dL (0.55-1.02); EST Glomerular Filtration Rate 183 mL/min (>60); Est Glom Filt Rate - Afr Amer 221 mL/min (>60); Estimated Creatinine Clearance 175.88 ml/min; Glucose 112 mg/dL (74-106); Magnesium 1.9 mg/dL (1.6-2.6); Potassium 4.1 mmol/L (3.5-5.1); Sodium Level 143 mmol/L (136-145)
[2018-10-31] MEDS: 0.9% NaCl Peripheral Flush Adult/Peds IV ×3 (09:06→18:20)
[2018-10-31 10:50] LABS: Vancomycin, Trough Level 11.3 ug/mL (5.0-15.0)
--- NOTE | 2018-10-31 10:55 | PN.ID_ITS ---
Patient Problems: Active and Suspected Problems (Last Updated 10/30/18 @ 05:29 by Otis Sorto MD) Severe sepsis (Acute) IV drug abuse (Acute) Subjective: Feeling much better, no fever. Denies any new joint or back pain. - Physical Exam General: Alert, Cooperative, No apparent distress Lungs: Clear to auscultation, Normal air movement Cardiovascular: Regular rate, Regular Rhythm, Murmur Abdomen: Soft, Non Tender, Non-Distended Skin: No rashes, - - no splinter hemorrhages on hands or feet Musculoskeletal: No Tenderness to Palpation of Joints or Extremities Vital Signs Temp Pulse Resp BP Pulse Ox 98.7 F 85 14 92/53 L 94 10/31/18 09:06 10/31/18 09:06 10/31/18 09:06 10/31/18 09:06 10/31/18 09:06 Oxygen Delivery Method Room Air Weight: 65.4 kg Body Mass Index (BMI) 24.0 Intake and Output for Last 24 Hours 10/29/18 10/30/18 10/31/18 23:59 23:59 23:59 Intake Total 5371.35 / 5371.35 505 / 505 Output Total 500 / 500 Balance 4871.35 / 4871.35 505 / 505 Microbiology Past 72 Hours 10/30/18 02:30 Blood Culture - Preliminary Blood Culture (Wb) - Left Hand Staphylococcus aureus 10/30/18 02:45 Bacteria Detection (PCR) - Final Blood Culture (Wb) - Arm Left Staphylococcus aureus mecA Resistance Marker Blood Culture - Preliminary Staphylococcus aureus 10/30/18 02:20 Blood Culture - Preliminary Blood Culture (Wb) - Anticubital Left Staphylococcus aureus Laboratory Tests Past 24 Hrs 10/31/18 10/31/18 10/31/18 05:20 05:20 05:20 WBC 6.8 RBC 3.87 L Hgb 10.6 L Hct 32.8 L MCV 84.8 MCH 27.4 MCHC 32.3 RDW Std Deviation 42.0 RDW Coeff of Aminah 13.4 Plt Count 173 MPV 10.7 Immature Gran % (Auto) 0.400 Neut % (Auto) 67.0 Lymph % (Auto) 24.2 [place] % (Auto) 7.1 Eos % (Auto) 1.0 Baso % (Auto) 0.3 Absolute Neuts (auto) 4.5 Absolute Lymphs (auto) 1.64 Nucleated RBC % 0 Sodium 143 Potassium 4.1 Chloride 113 H Carbon Dioxide 25.0 Anion Gap 5 BUN 8 Creatinine 0.44 L Estim Creat Clear Calc 175.88 Est GFR (MDRD) Af Amer 221 Est GFR (MDRD) Non-Af 183 BUN/Creatinine Ratio 18.1 Glucose 112 H Calcium 7.6 L Magnesium 1.9 Vancomycin Trough HCV RNA Quant (PCR) HIV 1&2 Antibody Pending 10/31/18 10/31/18 05:20 09:35 WBC RBC Hgb Hct MCV MCH MCHC RDW Std Deviation RDW Coeff of Aminah Plt Count MPV Immature Gran % (Auto) Neut % (Auto) Lymph % (Auto) [place] % (Auto) Eos % (Auto) Baso % (Auto) Absolute Neuts (auto) Absolute Lymphs (auto) Nucleated RBC % Sodium Potassium Chloride Carbon Dioxide Anion Gap BUN Creatinine Estim Creat Clear Calc Est GFR (MDRD) Af Amer Est GFR (MDRD) Non-Af BUN/Creatinine Ratio Glucose Calcium Magnesium Vancomycin Trough 11.3 HCV RNA Quant (PCR) Pending HIV 1&2 Antibody Medical Necessity - Tobacco Use Smoking Status: Current every day smoker Tobacco Use: Cigarettes Route of nutrition/ use of supplements: [] Nutritional Intake: [] IV Site: [] Saab Catheter: [] - Assessment/Plan Antibiotics: [] Assessment/Plan: [] Active and Suspected Problems (Last Updated 10/30/18 @ 05:29 by Otis Sorto MD) Severe sepsis (Acute) IV drug abuse (Acute) severe sepsis due to MRSA bactermia and possible pyelonephritis with active IVDU - improving, cont vanc/ceftriaxone while cxs pending. TTE showed no veg. Will repeat bcx today, will need TANYA this admit. hep C Ab - Pending hiv. Checking hcv pcr to see if she has active disease. Will follow, d/w Dr. Solo
[2018-10-31 12:42] LABS: HIV - WCH Non-Reactive (Nonreactive)
--- NOTE | 2018-10-31 15:22 | CASEMGMT ---
CORINA met with patient. Her fiance was in the room as well, but she was leaving. SW gave patient a list of local physicians per her request. SW then spoke with patient about resources for her drug use. She welcomed any resources SW could give her. CORINA gave her pamphlets for [facility] [employer], [facility], [employer], and a booklet of agencies in nearby [facility] that assist with substance abuse. CORINA told her if she would like to talk with SW she is welcome to ask her RN and they will get the message to CORINA. She thanked CORINA for the information. Lilia LOPEZ MSW
--- NOTE | 2018-10-31 15:24 | PCM.PROGNOTE ---
<Joni Senior - Last Filed: 10/31/18 15:24> Patient Problems: Active and Suspected Problems (Last Updated 10/30/18 @ 05:29 by Otis Sorto MD) Severe sepsis (Acute) IV drug abuse (Acute) Subjective: C/o fatigue. Denies CP/palp. No SOB/cough. No dysuria. Denies fever chills. She does have mild BL flank pain. - Physical Exam General: Alert, Oriented x3, Cooperative HEENT: Atraumatic, PERRLA, EOMI, Normocephalic Neck: Supple, No JVD, Negative Carotid Bruits Lungs: Clear to auscultation, Normal air movement Cardiovascular: Regular rate, No murmurs Abdomen: Bowel Sounds Present, Soft, Non Tender Extremities: No edema, Capillary Refill Less than 3 Seconds Skin: No rashes, No breakdown Musculoskeletal: No Tenderness to Palpation of Joints or Extremities Neurological: Cranial nerves II-XII grossly intact Psych/Mental Status: Appropriate, Depressed, Alert and oriented to time, place, person, mood and affect Vital Signs Temp Pulse Resp BP Pulse Ox 98.7 F 86 14 92/53 L 94 10/31/18 09:06 10/31/18 11:00 10/31/18 09:06 10/31/18 09:06 10/31/18 09:06 Oxygen Delivery Method Room Air Weight: 144 lb 2.917 oz Body Mass Index (BMI) 24.0 Intake and Output for Last 24 Hours 10/29/18 10/30/18 10/31/18 23:59 23:59 23:59 Intake Total 5371.35 / 5371.35 1134 / 1134 Output Total 500 / 500 350 / 350 Balance 4871.35 / 4871.35 784 / 784 Microbiology Past 72 Hours 10/30/18 02:00 Urine Culture - Preliminary Urine, Clean Catch GNR 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 10/30/18 02:30 Blood Culture - Preliminary Blood Culture (Wb) - Left Hand Staphylococcus aureus 10/30/18 02:45 Bacteria Detection (PCR) - Final Blood Culture (Wb) - Arm Left Staphylococcus aureus mecA Resistance Marker Blood Culture - Preliminary Staphylococcus aureus 10/30/18 02:20 Blood Culture - Preliminary Blood Culture (Wb) - Anticubital Left Staphylococcus aureus Laboratory Tests Past 24 Hrs 10/31/18 10/31/1819 05:20 05:20 05:20 WBC 6.8 RBC 3.87 L Hgb 10.6 L Hct 32.8 L MCV 84.8 MCH 27.4 MCHC 32.3 RDW Std Deviation 42.0 RDW Coeff of Aminah 13.4 Plt Count 173 MPV 10.7 Immature Gran % (Auto) 0.400 Neut % (Auto) 67.0 Lymph % (Auto) 24.2 Day % (Auto) 7.1 Eos % (Auto) 1.0 Baso % (Auto) 0.3 Absolute Neuts (auto) 4.5 Absolute Lymphs (auto) 1.64 Nucleated RBC % 0 Sodium 143 Potassium 4.1 Chloride 113 H Carbon Dioxide 25.0 Anion Gap 5 BUN 8 Creatinine 0.44 L Estim Creat Clear Calc 175.88 Est GFR (MDRD) Af Amer 221 Est GFR (MDRD) Non-Af 183 BUN/Creatinine Ratio 18.1 Glucose 112 H Calcium 7.6 L Magnesium 1.9 Vancomycin Trough HCV RNA Quant (PCR) HIV 1&2 Antibody Non-Reactive 10/31/18 10/31/18 05:20 09:35 WBC RBC Hgb Hct MCV MCH MCHC RDW Std Deviation RDW Coeff of Aminah Plt Count MPV Immature Gran % (Auto) Neut % (Auto) Lymph % (Auto) Day % (Auto) Eos % (Auto) Baso % (Auto) Absolute Neuts (auto) Absolute Lymphs (auto) Nucleated RBC % Sodium Potassium Chloride Carbon Dioxide Anion Gap BUN Creatinine Estim Creat Clear Calc Est GFR (MDRD) Af Amer Est GFR (MDRD) Non-Af BUN/Creatinine Ratio Glucose Calcium Magnesium Vancomycin Trough 11.3 HCV RNA Quant (PCR) Pending HIV 1&2 Antibody Medical Necessity - Tobacco Use Smoking Status: Current every day smoker Tobacco Use: Cigarettes Assessment/Plan All Active Problems (Last Updated 10/30/18 @ 05:29 by Otis Sorto MD) Severe sepsis (Acute) IV drug abuse (Acute) 1. Acute severe sepsis with bacteremia - MRSA in blood cx x3. ID following. Possibly 2/2 IV drug abuse. She also has a UTI and pyelonephritis (+UA and + flank pain). 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 TTE neg. Cardiology consulted for TANYA. LA resolved. Trop neg. HCV pending. HIV non reactive. T max 103.1 yesterday @ 0213. Tachycardia resolved. Continue vanc/rocephin 2. Hyponatremia hypokalemia - resolved with IV fluids and K supplementation 3. Tobacco abuse - patch 4. IV heroin abuse - does not appear to have acute withdrawal at this time. DVT ppx: early ambulation DC planning: given her IV drug use hx alf IV abx will represent a treatment challenge. Need to clear blood cx and check TANYA in AM to rule out endocarditis. This patient was seen by Joni Senior PA-C under the supervision of Dr. Solo. <Lindsay Solo - Last Filed: 10/31/18 18:31> - Physical Exam Vital Signs Temp Pulse Resp BP Pulse Ox 98.4 F 93 16 98/57 L 97 10/31/18 15:06 10/31/18 15:06 10/31/18 15:06 10/31/18 15:06 10/31/18 15:06 Oxygen Delivery Method Room Air Weight: 65.4 kg Body Mass Index (BMI) 24.0 Intake and Output for Last 24 Hours 10/29/18 10/30/18 10/31/18 23:59 23:59 23:59 Intake Total 5371.35 / 5371.35 1734 / 1734 Output Total 500 / 500 350 / 350 Balance 4871.35 / 4871.35 1384 / 1384 Microbiology Past 72 Hours 10/30/18 02:00 Urine Culture - Preliminary Urine, Clean Catch GNR lactose 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 10/30/18 02:30 Blood Culture - Preliminary Blood Culture (Wb) - Left Hand Staphylococcus aureus 10/30/18 02:45 Bacteria Detection (PCR) - Final Blood Culture (Wb) - Arm Left Staphylococcus aureus mecA Resistance Marker Blood Culture - Preliminary Staphylococcus aureus 10/30/18 02:20 Blood Culture - Preliminary Blood Culture (Wb) - Anticubital Left Staphylococcus aureus Laboratory Tests Past 24 Hrs 10/31/18 10/31/18 10/31/18 05:20 05:20 05:20 WBC 6.8 RBC 3.87 L Hgb 10.6 L Hct 32.8 L MCV 84.8 MCH 27.4 MCHC 32.3 RDW Std Deviation 42.0 RDW Coeff of Aminah 13.4 Plt Count 173 MPV 10.7 Immature Gran % (Auto) 0.400 Neut % (Auto) 67.0 Lymph % (Auto) 24.2 Day % (Auto) 7.1 Eos % (Auto) 1.0 Baso % (Auto) 0.3 Absolute Neuts (auto) 4.5 Absolute Lymphs (auto) 1.64 Nucleated RBC % 0 Sodium 143 Potassium 4.1 Chloride 113 H Carbon Dioxide 25.0 Anion Gap 5 BUN 8 Creatinine 0.44 L Estim Creat Clear Calc 175.88 Est GFR (MDRD) Af Amer 221 Est GFR (MDRD) Non-Af 183 BUN/Creatinine Ratio 18.1 Glucose 112 H Calcium 7.6 L Magnesium 1.9 Vancomycin Trough HCV RNA Quant (PCR) HIV 1&2 Antibody Non-Reactive 10/31/18 10/31/18 05:20 09:35 WBC RBC Hgb Hct MCV MCH MCHC RDW Std Deviation RDW Coeff of Aminah Plt Count MPV Immature Gran % (Auto) Neut % (Auto) Lymph % (Auto) Day % (Auto) Eos % (Auto) Baso % (Auto) Absolute Neuts (auto) Absolute Lymphs (auto) Nucleated RBC % Sodium Potassium Chloride Carbon Dioxide Anion Gap BUN Creatinine Estim Creat Clear Calc Est GFR (MDRD) Af Amer Est GFR (MDRD) Non-Af BUN/Creatinine Ratio Glucose Calcium Magnesium Vancomycin Trough 11.3 HCV RNA Quant (PCR) Pending HIV 1&2 Antibody Assessment/Plan This patient was seen in conjunction with MARVIN Devlin. I have independently interviewed and examined the patient and reviewed pertinent historical, laboratory, and other data. Please refer to MARVIN Devlin note for his patient's presentation, findings, and recommendations. I have reviewed and his note and concur with his documentation. Patient was seen and examined. She felt much improved. Denied any fever or chills. No nausea or vomiting. Physical Exam: Gen: Comfortable, not pale, not jaundiced CVS:HS I +II, regular, 2/6 holosystolic murmur RESP: Clear to auscultation GI: BS present and normal, soft, nontender, no palpable organs EXT:No edema ASSESSMENT: 1. Severe sepsis 2. MRSA bacteremia 3. Hypokalemia 4. Hyponatremia 5. Nicotine dependence 6. IV heroin use Plan: Continue on IV vancomycin and ceftriaxone Appreciate ID consult Cardiology consult for TANYA TANYA tomorrow Code Visit Inpatient E&M: [id number] Subs Hosp L2
--- NOTE | 2018-10-31 15:32 | PCM.RX.CS ---
Consult Pharmacy has been consulted to manage selected antiobiotic: Vancomycin Type of Consult: Follow-up Suspected Infection: Sepsis Prior Doses of Antibiotics Received/Current Regimen: Has been on 1250mg iv q12h. Labs: Sodium 143 mmol/L (136-145) 10/31/18 05:20 Potassium 4.1 mmol/L (3.5-5.1) 10/31/18 05:20 Chloride 113 mmol/L (98-107) H 10/31/18 05:20 Carbon Dioxide 25.0 mmol/L (21.0-32.0) 10/31/18 05:20 Anion Gap 5 (5-15) 10/31/18 05:20 BUN 8 mg/dL (7-18) 10/31/18 05:20 Creatinine 0.44 mg/dL (0.55-1.02) L 10/31/18 05:20 Est GFR (MDRD) Af Amer 221 mL/min (>60) 10/31/18 05:20 Est GFR (MDRD) Non-Af 183 mL/min (>60) 10/31/18 05:20 BUN/Creatinine Ratio 18.1 RATIO (10-20) 10/31/18 05:20 Glucose 112 mg/dL (74-106) H 10/31/18 05:20 Vancomycin Trough 11.3 ug/mL (5.0-15.0) 10/31/18 09:35 Microbiology: Microbiology 10/30/18 02:00 Urine, Clean Catch Urine Culture - Preliminary GNR lactose 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 protection technician 10/30/18 02:30 Blood Culture (Wb) - Left Hand Blood Culture - Preliminary Staphylococcus aureus 10/30/18 02:45 Blood Culture (Wb) - Arm Left Bacteria Detection (PCR) - Final Staphylococcus aureus mecA Resistance Marker 10/30/18 02:45 Blood Culture (Wb) - Arm Left Blood Culture - Preliminary Staphylococcus aureus 10/30/18 02:20 Blood Culture (Wb) - Anticubital Left Blood Culture - Preliminary Staphylococcus aureus Weight used for dosin.4 kg Estimated Creatinine Clearance: ~176ml/min Goal Trough: 15-20 mcg/mL Pharmacy Plan for Drug Dosing: Renal function reviewed and improvement noted. CrcL has changed from ~87ml/min to 176. Trough level today noted to be 11.3 at 11hr post previous dose. Will begin increased dosage regimen of 1250mg iv q8h and get another trough level on 11.01.18 before 4th dose of new regimen. Pharmacy Service will continue to monitor and adjust dosing as required. Follow-Up Labs: Trough Vancomycin - 11.01.18 @1730 before 1800 dose
[2018-10-31] MEDS: hydrOXYzine PAM 25 MG Capsule 50 MG PO (15:41)
[2018-10-31] MEDS: cloNIDine HCl 0.1 MG Tablet PO (22:00)
[2018-11-01] VITALS (15 sets, daily range): BP systolic 85–116; BP diastolic 42–68; PULSE 77–88; RESP 12–18; TEMP 36.9–37.4; O2SAT 93–100; BMI 24.0
[2018-11-01] MEDS: Buprenorphine HCl 2 MG TAB.SUBL SL ×2 (02:24→15:22)
--- NOTE | 2018-11-01 05:55 | ECHOTEE_ITS ---
Reason For Study: BACTEREMIA Medication TANYA probe 6VT-D (SN [id number]) passed with minimal difficulty. No complications were noted. [id number] gargled and swallowed. Versed 2 mg given slow IVP. Left Ventricle Normal LV size. The estimated ejection fraction is 55 %. Right Ventricle Normal RV size. Normal systolic function. Atria Normal left atrium. Normal right atrium. Mitral Valve There is no vegetation seen on the mitral valve. No mitral valve insufficiency. Tricuspid Valve No vegetations identified. Trivial tricuspid valve insufficiency. Aortic Valve There is no aortic valvular vegetation. There is no aortic stenosis. No aortic valve insufficiency. Interpretation Summary The estimated ejection fraction is 55 %. No evidence of IE Ordering Physician: Joni Senior Referring Physician: Otis Sorto Performed By: Mukesh Oconnor RCS
[2018-11-01 06:21] LABS: Absolute Lymphocyte Count 2.74 X10^3/uL (0.83-4.51); Absolute Neutrophil Count 4.2 X10^3/uL (2.0-7.7); Basophil# 0.03 X10^3/uL; Basophil% 0.4 % (0-1); Eosinophil# 0.07 X10^3/uL; Eosinophils% 0.9 % (0-5); Hematocrit 32.9 % (37-47); Hemoglobin 10.8 g/dL (12.0-15.0); Lymphocyte # 2.74 X10^3/ul (4.0); Lymphocyte % 35.6 % (19-41); Mean Corp Hgb Conc 32.8 g/dL (32-36); Mean Corpuscular Hgb 27.6 pg (27.0-32.0); Mean Corpuscular Volume 84.1 fL (81-99); Mean Platelet Vol. 10.6 fl (6.2-12.0); Monocyte# 0.61 X10^3/uL; Monocyte% 7.9 % (0-10); NRBC Flagged by Analyzer 0 % (0-5); Neutrophil # 4.21 X10^3/uL (2.7-7.7); Neutrophil % 54.7 % (47-70); POSITIVE MORPHOLOGY YES; Platelet Count 221 K/mm3 (150-450); RBC Distribution Width CV 13.5 % (11.6-14.6); RBC Distribution Width SD 42.1 fl (35.1-43.9); Red Blood Count 3.91 M/mm3 (4.2-5.4); White Blood Count 7.7 K/mm3 (4.4-11.0)
[2018-11-01 06:46] LABS: Differential Indicated SCAN CRITERIA MET
[2018-11-01 06:53] LABS: Differential Comment SCANNED
[2018-11-01 06:59] LABS: Anion Gap 6 (5-15); BUN 9 mg/dL (7-18); BUN/Creat Ratio 13.4 RATIO (10-20); Calcium,Total 7.8 mg/dL (8.5-10.1); Chloride 108 mmol/L (98-107); Creatinine, Serum 0.67 mg/dL (0.55-1.02); EST Glomerular Filtration Rate 113 mL/min (>60); Est Glom Filt Rate - Afr Amer 137 mL/min (>60); Glucose 94 mg/dL (74-106); Sodium Level 141 mmol/L (136-145)
[2018-11-01] MEDS: 0.9% NaCl Peripheral Flush Adult/Peds IV ×2 (08:49→16:56)
--- NOTE | 2018-11-01 11:18 | PN.ID_ITS ---
Patient Problems: Active and Suspected Problems (Last Updated 10/30/18 @ 05:29 by Otis Sorto MD) Severe sepsis (Acute) IV drug abuse (Acute) Subjective: Feeling sleepy s/p TANYA, no fever - Physical Exam General: Alert, Cooperative, No apparent distress Lungs: Clear to auscultation, Normal air movement Cardiovascular: Regular rate, Regular Rhythm, Murmur Abdomen: Soft, Non Tender, Non-Distended Skin: No rashes Vital Signs Temp Pulse Resp BP Pulse Ox 98.4 F 81 16 112/64 96 11/01/18 10:45 11/01/18 10:45 11/01/18 10:45 11/01/18 10:45 11/01/18 10:45 Oxygen Delivery Method Room Air Weight: 65.4 kg Body Mass Index (BMI) 24.0 Intake and Output for Last 24 Hours 10/30/18 10/31/18 11/01/18 23:59 23:59 23:59 Intake Total 5371.35 / 5371.35 2249 / 2249 345.5 / 345.5 Output Total 500 / 500 350 / 350 Balance 4871.35 / 4871.35 1899 / 1899 345.5 / 345.5 Microbiology Past 72 Hours 10/30/18 02:00 Urine Culture - Final Urine, Clean Catch Klebsiella pneumoniae sp pneum 10/30/18 02:30 Blood Culture - Final Blood Culture (Wb) - Left Hand Staphylococcus aureus 10/30/18 02:20 Blood Culture - Final Blood Culture (Wb) - Anticubital Left Staphylococcus aureus 10/30/18 02:45 Bacteria Detection (PCR) - Final Blood Culture (Wb) - Arm Left Staphylococcus aureus mecA Resistance Marker Blood Culture - Final Meth. resistant Staph. aureus Laboratory Tests Past 24 Hrs 10/31/18 11/01/18 11/01/18 05:20 05:40 05:40 WBC 7.7 RBC 3.91 L Hgb 10.8 L Hct 32.9 L MCV 84.1 MCH 27.6 MCHC 32.8 RDW Std Deviation 42.1 RDW Coeff of Aminah 13.5 Plt Count 221 MPV 10.6 Immature Gran % (Auto) 0.500 Neut % (Auto) 54.7 Lymph % (Auto) 35.6 [place] % (Auto) 7.9 Eos % (Auto) 0.9 Baso % (Auto) 0.4 Absolute Neuts (auto) 4.2 Absolute Lymphs (auto) 2.74 Nucleated RBC % 0 Differential Comment SCANNED Sodium 141 Potassium 4.0 Chloride 108 H Carbon Dioxide 27.0 Anion Gap 6 BUN 9 Creatinine 0.67 Estim Creat Clear Calc 115.50 Est GFR (MDRD) Af Amer 137 Est GFR (MDRD) Non-Af 113 BUN/Creatinine Ratio 13.4 Glucose 94 Calcium 7.8 L HIV 1&2 Antibody Non-Reactive Medical Necessity - Tobacco Use Smoking Status: Current every day smoker Tobacco Use: Cigarettes Route of nutrition/ use of supplements: [] Nutritional Intake: [] IV Site: [] Saab Catheter: [] - Assessment/Plan Antibiotics: [] Assessment/Plan: [] Active and Suspected Problems (Last Updated 10/30/18 @ 05:29 by Otis Sorto MD) Severe sepsis (Acute) IV drug abuse (Acute) severe sepsis due to MRSA bactermia and possible klebs pyelonephritis with active IVDU - improving, cont vanc/ceftriaxone. TTE showed no veg. Will repeat bcx today, TANYA report pending. hep C Ab - neg hiv. Checking hcv pcr to see if she has active disease. Will follow
--- NOTE | 2018-11-01 12:06 | PN_ITS ---
<Joni Senior - Last Filed: 11/01/18 12:06> Patient Problems: Active and Suspected Problems (Last Updated 10/30/18 @ 05:29 by Otis Sorto MD) Severe sepsis (Acute) IV drug abuse (Acute) Subjective: No fever or chills. She now has a productive cough. No SOB. Still lethargic. Minimally active. Encouraged activity and incentive spirometer. Pt and visitor concerned about left hand pain and swelling at IV and want it removed. Nursing informed. - Physical Exam General: Alert, Oriented x3, Cooperative HEENT: Atraumatic, PERRLA, EOMI, Normocephalic Neck: Supple, No JVD, Negative Carotid Bruits Lungs: Clear to auscultation, Normal air movement Cardiovascular: Regular rate, No murmurs Abdomen: Bowel Sounds Present, Soft, Non Tender Extremities: No edema, Capillary Refill Less than 3 Seconds, - - left hand mild swelling, no erythema. tender to palp. no palpable rope Skin: No rashes, No breakdown Musculoskeletal: No Tenderness to Palpation of Joints or Extremities Neurological: Cranial nerves II-XII grossly intact Psych/Mental Status: Appropriate, Depressed, Alert and oriented to time, place, person, mood and affect Vital Signs Temp Pulse Resp BP Pulse Ox 98.4 F 81 16 112/64 96 11/01/18 10:45 11/01/18 10:45 11/01/18 10:45 11/01/18 10:45 11/01/18 10:45 Oxygen Delivery Method Room Air Weight: 144 lb 2.917 oz Body Mass Index (BMI) 24.0 Intake and Output for Last 24 Hours 10/30/18 10/31/18 11/01/18 23:59 23:59 23:59 Intake Total 5371.35 / 5371.35 2249 / 2249 345.5 / 345.5 Output Total 500 / 500 350 / 350 Balance 4871.35 / 4871.35 1899 / 1899 345.5 / 345.5 Microbiology Past 72 Hours 10/30/18 02:00 Urine Culture - Final Urine, Clean Catch Klebsiella pneumoniae sp pneum 10/30/18 02:30 Blood Culture - Final Blood Culture (Wb) - Left Hand Staphylococcus aureus 10/30/18 02:20 Blood Culture - Final Blood Culture (Wb) - Anticubital Left Staphylococcus aureus 10/30/18 02:45 Bacteria Detection (PCR) - Final Blood Culture (Wb) - Arm Left Staphylococcus aureus mecA Resistance Marker Blood Culture - Final Meth. resistant Staph. aureus Laboratory Tests Past 24 Hrs 10/31/18 11/01/18 11/01/18 05:20 05:40 05:40 WBC 7.7 RBC 3.91 L Hgb 10.8 L Hct 32.9 L MCV 84.1 MCH 27.6 MCHC 32.8 RDW Std Deviation 42.1 RDW Coeff of Aminah 13.5 Plt Count 221 MPV 10.6 Immature Gran % (Auto) 0.500 Neut % (Auto) 54.7 Lymph % (Auto) 35.6 [place] % (Auto) 7.9 Eos % (Auto) 0.9 Baso % (Auto) 0.4 Absolute Neuts (auto) 4.2 Absolute Lymphs (auto) 2.74 Nucleated RBC % 0 Differential Comment SCANNED Sodium 141 Potassium 4.0 Chloride 108 H Carbon Dioxide 27.0 Anion Gap 6 BUN 9 Creatinine 0.67 Estim Creat Clear Calc 115.50 Est GFR (MDRD) Af Amer 137 Est GFR (MDRD) Non-Af 113 BUN/Creatinine Ratio 13.4 Glucose 94 Calcium 7.8 L HIV 1&2 Antibody Non-Reactive Medical Necessity - Tobacco Use Smoking Status: Current every day smoker Tobacco Use: Cigarettes Assessment/Plan All Active Problems (Last Updated 10/30/18 @ 05:29 by Otis Sorto MD) Severe sepsis (Acute) IV drug abuse (Acute) 1. Acute severe sepsis with bacteremia - MRSA in blood cx x3. ID following. Possibly 2/2 IV drug abuse. She also has a UTI and pyelonephritis (+UA and + flank pain). 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 TTE neg. Underwent TANYA today. Repeat cultures pending. 2. Hyponatremia hypokalemia - resolved with IV fluids and K supplementation. Corrected calcium on admission normal. BMP in AM as it has been declining. Albumin in AM to reassess. 3. Tobacco abuse - patch 4. IV heroin abuse - does not appear to have acute withdrawal at this time. DVT ppx: early ambulation DC planning: given her IV drug use hx group home IV abx will represent a treatment challenge. Need to clear blood cx and check TANYA in AM to rule out endocarditis. This patient was seen by Joni Senior PA-C under the supervision of Dr. Solo. <Germania,[place] - Last Filed: 11/01/18 16:13> - Physical Exam Vital Signs Temp Pulse Resp BP Pulse Ox 98.4 F 77 16 112/64 96 11/01/18 10:45 11/01/18 15:00 11/01/18 10:45 11/01/18 10:45 11/01/18 10:45 Oxygen Delivery Method Room Air Weight: 65.4 kg Body Mass Index (BMI) 24.0 Intake and Output for Last 24 Hours 10/30/18 10/31/18 11/01/18 23:59 23:59 23:59 Intake Total 5371.35 / 5371.35 2249 / 2249 620.5 / 620.5 Output Total 500 / 500 350 / 350 Balance 4871.35 / 4871.35 1899 / 1899 620.5 / 620.5 Microbiology Past 72 Hours 10/30/18 02:00 Urine Culture - Final Urine, Clean Catch Klebsiella pneumoniae sp pneum 10/30/18 02:30 Blood Culture - Final Blood Culture (Wb) - Left Hand Staphylococcus aureus 10/30/18 02:20 Blood Culture - Final Blood Culture (Wb) - Anticubital Left Staphylococcus aureus 10/30/18 02:45 Bacteria Detection (PCR) - Final Blood Culture (Wb) - Arm Left Staphylococcus aureus mecA Resistance Marker Blood Culture - Final Meth. resistant Staph. aureus Laboratory Tests Past 24 Hrs 11/01/18 11/01/18 05:40 05:40 WBC 7.7 RBC 3.91 L Hgb 10.8 L Hct 32.9 L MCV 84.1 MCH 27.6 MCHC 32.8 RDW Std Deviation 42.1 RDW Coeff of Aminah 13.5 Plt Count 221 MPV 10.6 Immature Gran % (Auto) 0.500 Neut % (Auto) 54.7 Lymph % (Auto) 35.6 [place] % (Auto) 7.9 Eos % (Auto) 0.9 Baso % (Auto) 0.4 Absolute Neuts (auto) 4.2 Absolute Lymphs (auto) 2.74 Nucleated RBC % 0 Differential Comment SCANNED Sodium 141 Potassium 4.0 Chloride 108 H Carbon Dioxide 27.0 Anion Gap 6 BUN 9 Creatinine 0.67 Estim Creat Clear Calc 115.50 Est GFR (MDRD) Af Amer 137 Est GFR (MDRD) Non-Af 113 BUN/Creatinine Ratio 13.4 Glucose 94 Calcium 7.8 L Assessment/Plan This patient was seen in conjunction with MARVIN Devlin. I have independently interviewed and examined the patient and reviewed pertinent historical, laboratory, and other data. Please refer to MARVIN Devlin note for his patient's presentation, findings, and recommendations. I have reviewed and his note and concur with his documentation. Patient was seen and examined. She felt much improved. Denied any fever or chills. No nausea or vomiting. Physical Exam: Gen: Comfortable, not pale, not jaundiced CVS:HS I +II, regular, 2/6 holosystolic murmur RESP: Clear to auscultation GI: BS present and normal, soft, nontender, no palpable organs EXT:No edema ASSESSMENT: 1. Severe sepsis 2. MRSA bacteremia 3. Hypokalemia 4. Hyponatremia 5. Nicotine dependence 6. IV heroin use Plan: Continue on IV vancomycin and ceftriaxone TANYA report pending Follow-up on repeat blood cultures Code Visit Inpatient E&M: 65207 Subs Hosp L2
[2018-11-01] MEDS: Methocarbamol 750 MG Tablet PO (16:56)
[2018-11-01] MEDS: hydrOXYzine PAM 25 MG Capsule 50 MG PO (16:56)
[2018-11-01 18:47] LABS: Vancomycin, Trough Level 18.7 ug/mL (5.0-15.0)
[2018-11-01 20:07] LABS: HCV Quant. RNA PCR 5930 IU/mL (.)
[2018-11-02] VITALS (11 sets, daily range): BP systolic 91–120; BP diastolic 41–76; PULSE 74–141; RESP 14–19; TEMP 36.4–37.7; O2SAT 92–96
[2018-11-02] MEDS: Buprenorphine HCl 2 MG TAB.SUBL SL (02:15)
[2018-11-02 02:17] LABS: Vancomycin, Trough Level 19.6 ug/mL (5.0-15.0)
--- NOTE | 2018-11-02 02:45 | PCM.RX.CS ---
Consult Pharmacy has been consulted to manage selected antiobiotic: Vancomycin Type of Consult: Follow-up Suspected Infection: Sepsis Prior Doses of Antibiotics Received/Current Regimen: Medications Vancomycin HCl 1,250 mg/ (Sodium Chloride) 275 mls @ 167 mls/hr IV Q8H CHRISTINE Last Admin: 11/02/18 02:15 Dose: 167 mls/hr Documented by: Labs: Sodium 141 mmol/L (136-145) 11/01/18 05:40 Potassium 4.0 mmol/L (3.5-5.1) 11/01/18 05:40 Chloride 108 mmol/L (98-107) H 11/01/18 05:40 Carbon Dioxide 27.0 mmol/L (21.0-32.0) 11/01/18 05:40 Anion Gap 6 (5-15) 11/01/18 05:40 BUN 9 mg/dL (7-18) 11/01/18 05:40 Creatinine 0.67 mg/dL (0.55-1.02) 11/01/18 05:40 Est GFR (MDRD) Af Amer 137 mL/min (>60) 11/01/18 05:40 Est GFR (MDRD) Non-Af 113 mL/min (>60) 11/01/18 05:40 BUN/Creatinine Ratio 13.4 RATIO (10-20) 11/01/18 05:40 Glucose 94 mg/dL (74-106) 11/01/18 05:40 Vancomycin Trough 19.6 ug/mL (5.0-15.0) H 11/02/18 01:30 Microbiology: Microbiology 10/30/18 02:00 Urine, Clean Catch Urine Culture - Final Klebsiella pneumoniae sp pneum 10/30/18 02:30 Blood Culture (Wb) - Left Hand Blood Culture - Final Staphylococcus aureus 10/30/18 02:20 Blood Culture (Wb) - Anticubital Left Blood Culture - Final Staphylococcus aureus 10/30/18 02:45 Blood Culture (Wb) - Arm Left Bacteria Detection (PCR) - Final Staphylococcus aureus mecA Resistance Marker 10/30/18 02:45 Blood Culture (Wb) - Arm Left Blood Culture - Final Meth. resistant Staph. aureus Weight used for dosin.4 kg Estimated Creatinine Clearance: 115.5 Goal Trough: 15-20 mcg/mL Pharmacy Plan for Drug Dosing: The vancomycin trough returned at 19.6 mg/L is within goal range (15-20). The current dosing regimen will be continued and trough checked in 4 days unless renal function changes. Pharmacy Service will continue to monitor and adjust dosing as required. Follow-Up Labs: Trough Vancomycin - in 4 days Labs to be done on [date and time ordered]: 11/05/18 7686
[2018-11-02 07:41] LABS: Anion Gap 8 (5-15); BUN 9 mg/dL (7-18); BUN/Creat Ratio 17.5 RATIO (10-20); Chloride 107 mmol/L (98-107); Creatinine, Serum 0.52 mg/dL (0.55-1.02); EST Glomerular Filtration Rate 153 mL/min (>60); Est Glom Filt Rate - Afr Amer 185 mL/min (>60); Estimated Creatinine Clearance 148.82 ml/min; Glucose 91 mg/dL (74-106); Potassium 3.8 mmol/L (3.5-5.1); Sodium Level 140 mmol/L (136-145)
[2018-11-02] MEDS: 0.9% NaCl Peripheral Flush Adult/Peds IV (09:32)
[2018-11-02 10:14] LABS: HCV log 10 3.773 (.)
[2018-11-02] MEDS: 0.9% NaCl IVPB Med Flush (250 mL) 15 ML IV (10:56)
--- NOTE | 2018-11-02 12:53 | PCM.PROGNOTE ---
<Joni Senior - Last Filed: 11/02/18 12:53> Patient Problems: Active and Suspected Problems (Last Updated 10/30/18 @ 05:29 by Otis Sorto MD) Severe sepsis (Acute) IV drug abuse (Acute) Subjective: Pt resting comfortably in bed, states today she feels much better. No chest pain. Cough improved. No fever/Chills. Denies dysuria, however does have flank pain when she urinates. Affect is also brighter. - Physical Exam General: Alert, Oriented x3, Cooperative HEENT: Atraumatic, PERRLA, EOMI, Normocephalic Neck: Supple, No JVD, Negative Carotid Bruits Lungs: Clear to auscultation, Normal air movement Cardiovascular: Regular rate, No murmurs Abdomen: Bowel Sounds Present, Soft, Non Tender Extremities: No edema, Capillary Refill Less than 3 Seconds Skin: No rashes, No breakdown Musculoskeletal: No Tenderness to Palpation of Joints or Extremities Neurological: Cranial nerves II-XII grossly intact Psych/Mental Status: Normal Affect, Appropriate, Alert and oriented to time, place, person, mood and affect Vital Signs Temp Pulse Resp BP Pulse Ox 97.6 F L 81 16 107/47 L 92 11/02/18 10:22 11/02/18 11:00 11/02/18 10:22 11/02/18 10:22 11/02/18 10:22 Oxygen Delivery Method Room Air Weight: 144 lb 2.917 oz Body Mass Index (BMI) 24.0 Intake and Output for Last 24 Hours 10/31/18 11/01/18 11/02/18 23:59 23:59 23:59 Intake Total 2249 / 2249 1615.5 / 1615.5 840 / 840 Output Total 350 / 350 Balance 1899 / 1899 1615.5 / 1615.5 840 / 840 Microbiology Past 72 Hours 10/31/18 10:02 Blood Culture - Preliminary Blood Culture (Wb) - Anticubital Right No growth in 48 hours. 10/30/18 02:00 Urine Culture - Final Urine, Clean Catch Klebsiella pneumoniae sp pneum 10/30/18 02:30 Blood Culture - Final Blood Culture (Wb) - Left Hand Staphylococcus aureus 10/30/18 02:20 Blood Culture - Final Blood Culture (Wb) - Anticubital Left Staphylococcus aureus 10/30/18 02:45 Bacteria Detection (PCR) - Final Blood Culture (Wb) - Arm Left Staphylococcus aureus mecA Resistance Marker Blood Culture - Final Meth. resistant Staph. aureus Laboratory Tests Past 24 Hrs 10/31/18 11/01/18 11/02/18 05:20 17:40 01:30 Sodium Potassium Chloride Carbon Dioxide Anion Gap BUN Creatinine Estim Creat Clear Calc Est GFR (MDRD) Af Amer Est GFR (MDRD) Non-Af BUN/Creatinine Ratio Glucose Calcium Albumin Vancomycin Trough 18.7 H 19.6 H HCV RNA Quant (PCR) 5930 HCV RNA (PCR) IU log10 3.773 HCV RNA PCR Test Info Comment 11/02/18 07:02 Sodium 140 Potassium 3.8 Chloride 107 Carbon Dioxide 25.0 Anion Gap 8 BUN 9 Creatinine 0.52 L Estim Creat Clear Calc 148.82 Est GFR (MDRD) Af Amer 185 Est GFR (MDRD) Non-Af 153 BUN/Creatinine Ratio 17.5 Glucose 91 Calcium 8.0 L Albumin 2.0 L Vancomycin Trough HCV RNA Quant (PCR) HCV RNA (PCR) IU log10 HCV RNA PCR Test Info Medical Necessity - Tobacco Use Smoking Status: Current every day smoker Tobacco Use: Cigarettes Assessment/Plan All Active Problems (Last Updated 10/30/18 @ 05:29 by Otis Sorto MD) Severe sepsis (Acute) IV drug abuse (Acute) 1. Acute severe sepsis with bacteremia - MRSA in blood cx x3. ID following. Possibly 2/2 IV drug abuse. She also has a UTI and pyelonephritis (+UA and + flank pain). Urine shows Klebsiella pneumonia. TTE neg. TANYA negative. Following blood culture negative to date. Afebrile 2. Hyponatremia hypokalemia - resolved with IV fluids and K supplementation. Corrected calcium normal. 3. Tobacco abuse - patch 4. IV heroin abuse - does not appear to have acute withdrawal at this time. DVT ppx: early ambulation DC planning: PO vs IV abx at DC. likely home. No PICC line as she is an IV drug user. This patient was seen by Joni Senior PA-C under the supervision of Dr. Solo. <Lindsay Solo - Last Filed: 11/02/18 13:30> - Physical Exam Vital Signs Temp Pulse Resp BP Pulse Ox 97.6 F L 81 16 107/47 L 92 11/02/18 10:22 11/02/18 11:00 11/02/18 10:22 11/02/18 10:22 11/02/18 10:22 Oxygen Delivery Method Room Air Weight: 65.4 kg Body Mass Index (BMI) 24.0 Intake and Output for Last 24 Hours 10/31/18 11/01/18 11/02/18 23:59 23:59 23:59 Intake Total 2249 / 2249 1615.5 / 1615.5 840 / 840 Output Total 350 / 350 Balance 1899 / 1899 1615.5 / 1615.5 840 / 840 Microbiology Past 72 Hours 10/31/18 10:02 Blood Culture - Preliminary Blood Culture (Wb) - Anticubital Right No growth in 48 hours. 10/30/18 02:00 Urine Culture - Final Urine, Clean Catch Klebsiella pneumoniae sp pneum 10/30/18 02:30 Blood Culture - Final Blood Culture (Wb) - Left Hand Staphylococcus aureus 10/30/18 02:20 Blood Culture - Final Blood Culture (Wb) - Anticubital Left Staphylococcus aureus 10/30/18 02:45 Bacteria Detection (PCR) - Final Blood Culture (Wb) - Arm Left Staphylococcus aureus mecA Resistance Marker Blood Culture - Final Meth. resistant Staph. aureus Laboratory Tests Past 24 Hrs 10/31/18 11/01/18 11/02/18 05:20 17:40 01:30 Sodium Potassium Chloride Carbon Dioxide Anion Gap BUN Creatinine Estim Creat Clear Calc Est GFR (MDRD) Af Amer Est GFR (MDRD) Non-Af BUN/Creatinine Ratio Glucose Calcium Albumin Vancomycin Trough 18.7 H 19.6 H HCV RNA Quant (PCR) 5930 HCV RNA (PCR) IU log10 3.773 HCV RNA PCR Test Info Comment 11/02/18 07:02 Sodium 140 Potassium 3.8 Chloride 107 Carbon Dioxide 25.0 Anion Gap 8 BUN 9 Creatinine 0.52 L Estim Creat Clear Calc 148.82 Est GFR (MDRD) Af Amer 185 Est GFR (MDRD) Non-Af 153 BUN/Creatinine Ratio 17.5 Glucose 91 Calcium 8.0 L Albumin 2.0 L Vancomycin Trough HCV RNA Quant (PCR) HCV RNA (PCR) IU log10 HCV RNA PCR Test Info Assessment/Plan This patient was seen in conjunction with MARVIN Devlin. I have independently interviewed and examined the patient and reviewed pertinent historical, laboratory, and other data. Please refer to MARVIN Devlin note for his patient's presentation, findings, and recommendations. I have reviewed and his note and concur with his documentation. Patient was seen and examined. No new complains. TANYA is negative. Denied any fever or chills. No nausea or vomiting. Physical Exam: Gen: Comfortable, not pale, not jaundiced CVS:HS I +II, regular, 2/6 holosystolic murmur RESP: Clear to auscultation GI: BS present and normal, soft, nontender, no palpable organs EXT:No edema ASSESSMENT: 1. Severe sepsis 2. MRSA bacteremia 3. Hypokalemia 4. Hyponatremia 5. Nicotine dependence 6. IV heroin use Plan: Continue on IV vancomycin and ceftriaxone Repeat blood cultures are pending Code Visit Inpatient E&M: 76132 Subs Hosp L2
[2018-11-02] MEDS: Acetaminophen 325 MG Tablet 650 MG PO (23:46)
[2018-11-02] MEDS: hydrOXYzine PAM 25 MG Capsule 50 MG PO (23:46)
[2018-11-03] VITALS (10 sets, daily range): BP systolic 91–113; BP diastolic 49–64; PULSE 60–121; RESP 14–16; TEMP 36.7–37.4; O2SAT 94–98
--- NOTE | 2018-11-03 00:08 | NURSING ---
Patient's noted to be tachycardic on the vehicle monitor technician. This RN went to check on patient. DRAWING CHECKER in room. DRAWING CHECKER and patient's significant other state that pt's chest is bothering her, she feels like she can't breathe, and that she is frustrated that nothing is being done for her chest pain, and frustrated that she can't go to the bathroom when she wants to. The patient's significant other left. The patient stated, If she left I am going to spazz out. Pt tearful and seems frustrated. Pt given Vistaril for anxiety and Tylenol for her chest pain. Vital signs taken; HR improved. Pt states her chest pain is not worse or different than it has been. Pt states she is leaving tomorrow. Pt encouraged to call this RN if there is anything she needs.
--- NOTE | 2018-11-03 12:44 | PCM.PROGNOTE ---
<Joni Senior - Last Filed: 11/03/18 12:44> Patient Problems: Active and Suspected Problems (Last Updated 10/30/18 @ 05:29 by Otis Sorto MD) Severe sepsis (Acute) IV drug abuse (Acute) Subjective: Resting comfortably in bed no acute distress. No new complaints. No cough or chest pain, no fevers or chills, no dysuria or flank pain, patient feels much improved. She continues to have negative cultures. - Physical Exam General: Alert, Oriented x3, Cooperative HEENT: Atraumatic, PERRLA, EOMI, Normocephalic Neck: Supple, No JVD, Negative Carotid Bruits Lungs: Clear to auscultation, Normal air movement Cardiovascular: Regular rate, No murmurs Abdomen: Bowel Sounds Present, Soft, Non Tender Extremities: No edema, Capillary Refill Less than 3 Seconds Skin: No rashes, No breakdown Musculoskeletal: No Tenderness to Palpation of Joints or Extremities Neurological: Cranial nerves II-XII grossly intact Psych/Mental Status: Normal Affect, Appropriate, Alert and oriented to time, place, person, mood and affect Vital Signs Temp Pulse Resp BP Pulse Ox 98.4 F 80 14 95/57 L 97 11/03/18 09:55 11/03/18 11:22 11/03/18 09:55 11/03/18 09:55 11/03/18 09:55 Oxygen Delivery Method Room Air Weight: 144 lb 2.917 oz Body Mass Index (BMI) 24.0 Intake and Output for Last 24 Hours 11/01/18 11/02/18 11/03/18 23:59 23:59 23:59 Intake Total 1615.5 / 1615.5 2589 / 2589 1270.25 / 1270.25 Balance 1615.5 / 1615.5 2589 / 2589 1270.25 / 1270.25 Microbiology Past 72 Hours 11/01/18 11:54 Blood Culture - Preliminary Blood Culture (Wb) - Anticubital Right No growth in 48 hours. 10/31/18 10:02 Blood Culture - Preliminary Blood Culture (Wb) - Anticubital Right No growth in 48 hours. 10/30/18 02:00 Urine Culture - Final Urine, Clean Catch Klebsiella pneumoniae sp pneum 10/30/18 02:30 Blood Culture - Final Blood Culture (Wb) - Left Hand Staphylococcus aureus 10/30/18 02:20 Blood Culture - Final Blood Culture (Wb) - Anticubital Left Staphylococcus aureus 10/30/18 02:45 Bacteria Detection (PCR) - Final Blood Culture (Wb) - Arm Left Staphylococcus aureus mecA Resistance Marker Blood Culture - Final Meth. resistant Staph. aureus Medical Necessity - Tobacco Use Smoking Status: Current every day smoker Tobacco Use: Cigarettes Assessment/Plan All Active Problems (Last Updated 10/30/18 @ 05:29 by Otis Sorto MD) Severe sepsis (Acute) IV drug abuse (Acute) 1. Acute severe sepsis with bacteremia -continues to feel improved. MRSA in blood cx x3. ID following. Possibly 2/2 IV drug abuse. She also has a UTI and pyelonephritis (+UA and + flank pain). Urine shows Klebsiella pneumonia. TTE neg. TANYA negative. Following blood culture negative to date. 2. Hyponatremia hypokalemia - resolved with IV fluids and K supplementation. Corrected calcium normal. 3. Tobacco abuse - patch 4. IV heroin abuse - does not appear to have acute withdrawal at this time. DVT ppx: early ambulation DC planning: PO vs IV abx at DC. likely home. No PICC line as she is an IV drug user. Likely able to be discharged home tomorrow. This patient was seen by Joni Senior PA-C under the supervision of Dr. Solo. <Lindsay Solo - Last Filed: 11/03/18 14:03> - Physical Exam Vital Signs Temp Pulse Resp BP Pulse Ox 98.4 F 80 14 95/57 L 97 11/03/18 09:55 11/03/18 11:22 11/03/18 09:55 11/03/18 09:55 11/03/18 09:55 Oxygen Delivery Method Room Air Weight: 65.4 kg Body Mass Index (BMI) 24.0 Intake and Output for Last 24 Hours 11/01/18 11/02/18 11/03/18 23:59 23:59 23:59 Intake Total 1615.5 / 1615.5 2589 / 2589 1270.25 / 1270.25 Balance 1615.5 / 1615.5 2589 / 2589 1270.25 / 1270.25 Microbiology Past 72 Hours 11/01/18 11:54 Blood Culture - Preliminary Blood Culture (Wb) - Anticubital Right No growth in 48 hours. 10/31/18 10:02 Blood Culture - Preliminary Blood Culture (Wb) - Anticubital Right No growth in 48 hours. 10/30/18 02:00 Urine Culture - Final Urine, Clean Catch Klebsiella pneumoniae sp pneum 10/30/18 02:30 Blood Culture - Final Blood Culture (Wb) - Left Hand Staphylococcus aureus 10/30/18 02:20 Blood Culture - Final Blood Culture (Wb) - Anticubital Left Staphylococcus aureus 10/30/18 02:45 Bacteria Detection (PCR) - Final Blood Culture (Wb) - Arm Left Staphylococcus aureus mecA Resistance Marker Blood Culture - Final Meth. resistant Staph. aureus Assessment/Plan This patient was seen in conjunction with MARVIN Devlin. I have independently interviewed and examined the patient and reviewed pertinent historical, laboratory, and other data. Please refer to MARVIN Devlin note for his patient's presentation, findings, and recommendations. I have reviewed and his note and concur with his documentation. Patient was seen and examined. No new complains. TANYA is negative. Repeat blood cultures are also negative Denied any fever or chills. No nausea or vomiting. Physical Exam: Gen: Comfortable, not pale, not jaundiced CVS:HS I +II, regular, 2/6 holosystolic murmur RESP: Clear to auscultation GI: BS present and normal, soft, nontender, no palpable organs EXT:No edema ASSESSMENT: 1. Severe sepsis 2. MRSA bacteremia 3. Hypokalemia 4. Hyponatremia 5. Nicotine dependence 6. IV heroin use Plan: Continue on IV vancomycin and ceftriaxone Follow-up on ID recommendations Code Visit Inpatient E&M: 37706 Subs Hosp L2
[2018-11-03] MEDS: 0.9% NaCl IVPB Med Flush (250 mL) 15 ML IV (19:22)
[2018-11-04 02:41] VITALS: BP 100/53; PULSE 90; RESP 19; TEMP 37.1; O2SAT 94
[2018-11-04] MEDS: 0.9% NaCl Peripheral Flush Adult/Peds IV (02:44)
[2018-11-04 03:05] VITALS: PULSE 92
[2018-11-04 05:55] LABS: Absolute Lymphocyte Count 2.06 X10^3/uL (0.83-4.51); Absolute Neutrophil Count 5.2 X10^3/uL (2.0-7.7); Basophil# 0.03 X10^3/uL; Basophil% 0.4 % (0-1); Eosinophil# 0.13 X10^3/uL; Eosinophils% 1.6 % (0-5); Hematocrit 34.4 % (37-47); Hemoglobin 11.2 g/dL (12.0-15.0); Lymphocyte # 2.06 X10^3/ul (4.0); Lymphocyte % 25.4 % (19-41); Mean Corp Hgb Conc 32.6 g/dL (32-36); Mean Corpuscular Hgb 27.3 pg (27.0-32.0); Mean Corpuscular Volume 83.7 fL (81-99); Monocyte# 0.68 X10^3/uL; Monocyte% 8.4 % (0-10); NRBC Flagged by Analyzer 0 % (0-5); Neutrophil # 5.18 X10^3/uL (2.7-7.7); Neutrophil % 63.7 % (47-70); Platelet Count 375 K/mm3 (150-450); RBC Distribution Width CV 13.3 % (11.6-14.6); RBC Distribution Width SD 41.2 fl (35.1-43.9); Red Blood Count 4.11 M/mm3 (4.2-5.4); White Blood Count 8.1 K/mm3 (4.4-11.0)
[2018-11-04 06:11] LABS: Anion Gap 7 (5-15); BUN 9 mg/dL (7-18); BUN/Creat Ratio 13.2 RATIO (10-20); Chloride 108 mmol/L (98-107); Creatinine, Serum 0.68 mg/dL (0.55-1.02); EST Glomerular Filtration Rate 111 mL/min (>60); Est Glom Filt Rate - Afr Amer 134 mL/min (>60); Glucose 94 mg/dL (74-106); Potassium 3.9 mmol/L (3.5-5.1); Sodium Level 142 mmol/L (136-145)
[2018-11-04 06:49] VITALS: PULSE 93
[2018-11-04 07:45] VITALS: O2SAT 94
[2018-11-04 08:05] VITALS: BP 100/49; PULSE 89; RESP 18; TEMP 37.3; O2SAT 94
[2018-11-04] MEDS: 0.9% NaCl IVPB Med Flush (250 mL) 15 ML IV (10:02)
--- NOTE | 2018-11-04 12:44 | PN.ID_ITS ---
Patient Problems: Active and Suspected Problems (Last Updated 10/30/18 @ 05:29 by Otis Sorto MD) Severe sepsis (Acute) IV drug abuse (Acute) Subjective: Feeling well, no fever, no n/v/d. - Physical Exam General: Alert, Cooperative, No apparent distress Lungs: Clear to auscultation, Normal air movement Cardiovascular: Regular rate, Regular Rhythm Abdomen: Bowel Sounds Present, Soft, Non Tender, Non-Distended Skin: No rashes Vital Signs Temp Pulse Resp BP Pulse Ox 99.2 F H 89 18 100/49 L 94 11/04/18 08:05 11/04/18 08:05 11/04/18 08:05 11/04/18 08:05 11/04/18 08:05 Oxygen Delivery Method Room Air Weight: 65.4 kg Body Mass Index (BMI) 24.0 Intake and Output for Last 24 Hours 11/02/18 11/03/18 11/04/18 23:59 23:59 23:59 Intake Total 2589 / 2589 2514.50 / 2514.50 495.50 / 495.50 Balance 2589 / 2589 2514.50 / 2514.50 495.50 / 495.50 Microbiology Past 72 Hours 11/02/18 07:02 Blood Culture - Preliminary Blood Culture (Wb) - Anticubital Right No growth in 48 hours. 11/01/18 11:54 Blood Culture - Preliminary Blood Culture (Wb) - Anticubital Right No growth in 48 hours. 10/31/18 10:02 Blood Culture - Preliminary Blood Culture (Wb) - Anticubital Right No growth in 48 hours. 10/30/18 02:00 Urine Culture - Final Urine, Clean Catch Klebsiella pneumoniae sp pneum Laboratory Tests Past 24 Hrs 11/04/18 11/04/18 05:15 05:15 WBC 8.1 RBC 4.11 L Hgb 11.2 L Hct 34.4 L MCV 83.7 MCH 27.3 MCHC 32.6 RDW Std Deviation 41.2 RDW Coeff of Aminah 13.3 Plt Count 375 MPV 10.0 Immature Gran % (Auto) 0.500 Neut % (Auto) 63.7 Lymph % (Auto) 25.4 [place] % (Auto) 8.4 Eos % (Auto) 1.6 Baso % (Auto) 0.4 Absolute Neuts (auto) 5.2 Absolute Lymphs (auto) 2.06 Nucleated RBC % 0 Sodium 142 Potassium 3.9 Chloride 108 H Carbon Dioxide 27.0 Anion Gap 7 BUN 9 Creatinine 0.68 Estim Creat Clear Calc 113.80 Est GFR (MDRD) Af Amer 134 Est GFR (MDRD) Non-Af 111 BUN/Creatinine Ratio 13.2 Glucose 94 Calcium 8.0 L Medical Necessity - Tobacco Use Smoking Status: Current every day smoker Tobacco Use: Cigarettes Route of nutrition/ use of supplements: [] Nutritional Intake: [] IV Site: [] Saab Catheter: [] - Assessment/Plan Antibiotics: [] Assessment/Plan: [] Active and Suspected Problems (Last Updated 10/30/18 @ 05:29 by Otis Sorto MD) Severe sepsis (Acute) IV drug abuse (Acute) severe sepsis due to MRSA bactermia and possible klebs pyelonephritis with active IVDU - improving, on vanc/ceftriaxone. TANYA showed no veg. Repeat bcx clear since 10/30. Ok for d/c home on linezolid for 10 more days, keflex for 2 more days. Counseled her re:need to stop IVDU. hep C Ab - neg hiv. HCV pcr only 6k, so she may be clearing this infection.. Will follow, wrote rx, d/w disability case manager. ID followup prn.
--- NOTE | 2018-11-04 12:45 | PCM.DC ---
- Discharge Diagnoses Current Active Problems: Current Active and Chronic Problems (Last Updated 10/30/18 @ 05:29 by Otis Sorto MD) Severe sepsis (Acute) IV drug abuse (Acute) You will use the following diet at home:: No restrictions Your food should be the consistency of: Regular Your liquids should be the consistency of: Regular/Thin Discharge Activity: Return to Normal Activity Allergies/Adverse Reactions: Allergies No Known Allergies Allergy (Verified 10/30/18 01:35) Medications to take at Discharge Acetaminophen [Tylenol Tablet] 650 mg PO Q6H PRN PRN tab 11/04/18 Cephalexin [Keflex] 500 mg PO Q8 #6 cap 11/04/18 Linezolid [Zyvox] 600 mg PO BID 10 Days #20 tab 11/04/18 The following prescriptions were given: Cephalexin [Keflex] 500 mg PO Q8 #6 cap Transmission Status: Sent to [facility] Linezolid [Zyvox] 600 mg PO BID 10 Days #20 tab Transmission Status: Received by [facility] Primary Care Physician: NOT,DEFINED [NON-STAFF] - Please follow up with your Primary Care Physician in: 1-2 weeks Test Results: Test results from this visit will be discussed in further detail at your follow-up appointment, if applicable. Proposed Discharge Date: 11/04/18
--- NOTE | 2018-11-04 13:13 | PCM.DC.SUM ---
<Joni Senior - Last Filed: 11/04/18 13:13> Discharge Date and Diagnosis - Problem List Patient Problems: Active and Suspected Problems (Last Updated 10/30/18 @ 05:29 by Otis Sorto MD) Severe sepsis (Acute) IV drug abuse (Acute) Date of Admission: 10/30/18 Date of Discharge: 11/04/18 - Primary Discharge Diagnosis Active and Suspected Problems (Last Updated 10/30/18 @ 05:29 by Otis Sorto MD) Severe sepsis and bacteremia 2/2 MRSA Bacteremia and Klebsiella pyelonephritis IV drug abuse with heroin leading to MRSA bacteremia Infective endocarditis ruled out. Hyponatremia, hypokalemia resolved Tobacco Abuse Hospital Course and Treatment Imaging Results: RAD/Chest 1 View (Portable) IMPRESSION: Possible mild interstitial inflammation. No pulmonary edema, congestive heart failure or confluent pneumonia. TTE: Interpretation Summary The estimated ejection fraction is 65 %. Normal diastology for age. Trivial mitral valve insufficiency. Trivial tricuspid valve insufficiency. Unable to estimate RV systolic pressure due to insufficient tricuspid regurgitant envelope. No echo evidence of bacterial vegeations. There is no comparison study available. TANYA: No vegetation Consultation : Genoveva OLIVER. Operations: None Procedures: Transesophageal Echo, Transthoracic echo Summary of Care Provided: Hospital Course: The patient is a 27 year old F with pmhx of IV heroin abuse who was recently released from assisted and started using IV heroin, who presented to the ER with 2.5 days of fevers chills and rigors. She also had chest pain, SOB, abdominal pain, difficulty emptying her bladder and urinary retention. She had a severely elevated Lactate, fever of 103, tachycardia to 140s, and positive urinalysis. She also reported flank pain, so she was started on vanc and zosyn. With her IVDU history there was concern for underlying endocarditis. Blood cultures were drawn and these did both show MRSA. Urine culture showed Klebsiella pna. ID was consulted. TTE was negative for vegetation, as was a follow up TANYA. She had good response to abx therapy. She was able to clear her blood cultures. ID placed her on PO Linezolid and keflex given her hx of IV drug abuse IV therapy was not felt appropriate.. She was discharge home in stable condition. She will need to follow up with her PCP in 1-2 weeks. This patient was seen by Joni Senior PA-C under the supervision of Dr. Ascencio. [] Patient Problems: Active and Suspected Problems (Last Updated 10/30/18 @ 05:29 by Otis Sorto MD) Severe sepsis (Acute) IV drug abuse (Acute) - Physical Exam General: Alert, Oriented x3, Cooperative HEENT: Atraumatic, PERRLA, EOMI, Normocephalic Neck: Supple, No JVD, Negative Carotid Bruits Lungs: Clear to auscultation, Normal air movement Cardiovascular: Regular rate, No murmurs Abdomen: Bowel Sounds Present, Soft, Non Tender Extremities: No edema, Capillary Refill Less than 3 Seconds Skin: No rashes, No breakdown Musculoskeletal: No Tenderness to Palpation of Joints or Extremities Neurological: Cranial nerves II-XII grossly intact Psych/Mental Status: Normal Affect, Appropriate Vital Signs Temp Pulse Resp BP Pulse Ox 99.2 F H 89 18 100/49 L 94 11/04/18 08:05 11/04/18 08:05 11/04/18 08:05 11/04/18 08:05 11/04/18 08:05 Oxygen Delivery Method Room Air Weight: 144 lb 2.917 oz Body Mass Index (BMI) 24.0 Intake and Output for Last 24 Hours 11/02/18 11/03/18 11/04/18 23:59 23:59 23:59 Intake Total 2589 / 2589 2514.50 / 2514.50 495.50 / 495.50 Balance 2589 / 2589 2514.50 / 2514.50 495.50 / 495.50 Microbiology Past 72 Hours 11/02/18 07:02 Blood Culture - Preliminary Blood Culture (Wb) - Anticubital Right No growth in 48 hours. 11/01/18 11:54 Blood Culture - Preliminary Blood Culture (Wb) - Anticubital Right No growth in 48 hours. 10/31/18 10:02 Blood Culture - Preliminary Blood Culture (Wb) - Anticubital Right No growth in 48 hours. Laboratory Tests Past 24 Hrs 11/04/18 11/04/18 05:15 05:15 WBC 8.1 RBC 4.11 L Hgb 11.2 L Hct 34.4 L MCV 83.7 MCH 27.3 MCHC 32.6 RDW Std Deviation 41.2 RDW Coeff of Aminah 13.3 Plt Count 375 MPV 10.0 Immature Gran % (Auto) 0.500 Neut % (Auto) 63.7 Lymph % (Auto) 25.4 [place] % (Auto) 8.4 Eos % (Auto) 1.6 Baso % (Auto) 0.4 Absolute Neuts (auto) 5.2 Absolute Lymphs (auto) 2.06 Nucleated RBC % 0 Sodium 142 Potassium 3.9 Chloride 108 H Carbon Dioxide 27.0 Anion Gap 7 BUN 9 Creatinine 0.68 Estim Creat Clear Calc 113.80 Est GFR (MDRD) Af Amer 134 Est GFR (MDRD) Non-Af 111 BUN/Creatinine Ratio 13.2 Glucose 94 Calcium 8.0 L Discharge Diet: No Restrictions Discharge Activity: Return to Normal Activity Home Medications: Medications to take at Discharge Acetaminophen [Tylenol Tablet] 650 mg PO Q6H PRN PRN tab 11/04/18 Cephalexin [Keflex] 500 mg PO Q8 #6 cap 11/04/18 Linezolid [Zyvox] 600 mg PO BID 10 Days #20 tab 11/04/18 Following Prescrptions Were Given to Patient: Cephalexin [Keflex] 500 mg PO Q8 #6 cap Transmission Status: Received by [facility] Linezolid [Zyvox] 600 mg PO BID 10 Days #20 tab Transmission Status: Received by [facility] Primary Care Physician: NOT,DEFINED [NON-STAFF] - Please follow up with your Primary Care Physician in: 1-2 weeks Disposition: Home Minutes spent on discharge:: 35 Patient Condition:: Stable Medical Necessity - Tobacco Use Smoking Status: Current every day smoker Tobacco Use: Cigarettes Meaningful Use Info Meaningful Use Diagnoses (Choose all that apply): None applicable <Kody Ascencio - Last Filed: 11/04/18 14:15> Discharge Date and Diagnosis - Primary Discharge Diagnosis Active and Suspected Problems (Last Updated 10/30/18 @ 05:29 by Otis Sorto MD) Severe sepsis (Acute) IV drug abuse (Acute) Hospital Course and Treatment Summary of Care Provided: This patient was seen in conjunction with Joni Senior PA-C . I have independently interviewed and examined the patient and reviewed pertinent historical, laboratory, and other data. Please refer to Joni Senior PA-C note for details of this patient's presentation, findings, and recommendations. I have reviewed Joni Senior PA-C note and concur with documented findings. In brief, patient is a 27-year-old female with history of IV heroin abuse admitted with Severe sepsis and bacteremia 2/2 MRSA patient underwent subsequent evaluation including TANYA and TTE both of which came back negative for endocarditis. She was also diagnosed with Klebsiella pyelonephritis. Patient was seen in consultation by Dr. Tomas with infectious disease discharged home on p.o. linezolid as well as Keflex Hospital course as elicited above by Joni Senior PA-C - Physical Exam Vital Signs Temp Pulse Resp BP Pulse Ox 99 F 75 18 115/75 99 11/04/18 13:20 11/04/18 13:20 11/04/18 13:20 11/04/18 13:20 11/04/18 13:20 Oxygen Delivery Method Room Air Weight: 65.4 kg Body Mass Index (BMI) 24.0 Intake and Output for Last 24 Hours 11/02/18 11/03/18 11/04/18 23:59 23:59 23:59 Intake Total 2589 / 2589 2514.50 / 2514.50 828.75 / 828.75 Balance 2589 / 2589 2514.50 / 2514.50 828.75 / 828.75 Microbiology Past 72 Hours 11/02/18 07:02 Blood Culture - Preliminary Blood Culture (Wb) - Anticubital Right No growth in 48 hours. 11/01/18 11:54 Blood Culture - Preliminary Blood Culture (Wb) - Anticubital Right No growth in 48 hours. 10/31/18 10:02 Blood Culture - Preliminary Blood Culture (Wb) - Anticubital Right No growth in 48 hours. Laboratory Tests Past 24 Hrs 11/04/18 11/04/18 05:15 05:15 WBC 8.1 RBC 4.11 L Hgb 11.2 L Hct 34.4 L MCV 83.7 MCH 27.3 MCHC 32.6 RDW Std Deviation 41.2 RDW Coeff of Aminah 13.3 Plt Count 375 MPV 10.0 Immature Gran % (Auto) 0.500 Neut % (Auto) 63.7 Lymph % (Auto) 25.4 [place] % (Auto) 8.4 Eos % (Auto) 1.6 Baso % (Auto) 0.4 Absolute Neuts (auto) 5.2 Absolute Lymphs (auto) 2.06 Nucleated RBC % 0 Sodium 142 Potassium 3.9 Chloride 108 H Carbon Dioxide 27.0 Anion Gap 7 BUN 9 Creatinine 0.68 Estim Creat Clear Calc 113.80 Est GFR (MDRD) Af Amer 134 Est GFR (MDRD) Non-Af 111 BUN/Creatinine Ratio 13.2 Glucose 94 Calcium 8.0 L Code Visit Inpatient E&M: 63542 Disch Hosp
[2018-11-04 13:20] VITALS: BP 115/75; PULSE 75; RESP 18; TEMP 37.2; O2SAT 99
[2018-11-04] MEDS: Linezolid 600 MG Tablet PO (13:42)
[2018-11-04] MEDS: Cephalexin 500 MG Capsule PO (13:42)
--- NOTE | 2018-11-04 13:48 | PHA.DC.MC ---
Pharmacy Service has performed discharge medication reconciliation and counseling for this patient. The patient's discharge medication list was reviewed for discrepancies and discrepancies were resolved. 1. LINEZOLID 600MG PO BID X 10 DAYS 2. CEPHALEXIN 500MG PO Q8H X 2 DAYS Home Medications Acetaminophen [Tylenol Tablet] 650 mg PO Q6H PRN PRN tab 11/04/18 Cephalexin [Keflex] 500 mg PO Q8 #6 cap 11/04/18 Linezolid [Zyvox] 600 mg PO BID 10 Days #20 tab 11/04/18 The patient was counseled on the following discharge medications and changes in medications for homegoing were reviewed. The Reason for Use, instructions for use, and potential side effects were reviewed for all new medications. The patient's questions regarding all of their medications were answered. The patient was able to verbally demonstrate an understanding of their discharge medications.
--- NOTE | 2018-11-04 14:40 | CASEMGMT ---
Per Dr. Tomas, pt to be sent home on Zyvox po at discharge and med was escribed to [facility] retail pharmacy. [facility] retail pharmacy did not have pt's insurance card on file and this was obtained and copied at this time. Card was then faxed to them and call placed to Annemarie in the pharmacy to updated BIN # and ID #, voices understanding. This RN CM received call from Matt in the pharmacy stating that Zyvox will need prior auth at this time. Call to Prior auth number for [facility] and they state that prior auth for Zyvox cannot be done via phone and they faxed form to this RN CM at this time. Form immediately filled out at this time with assistance from Dr. Tomas and faxed back to [facility] with copy of culture and sensitivities per request at this time. Form was marked Urgent as pt to be discharged today. Annemarie at [facility] retail pharmacy updated at this time, voices understanding. [facility] RN CM
--- NOTE | 2018-11-04 16:03 | NURSING ---
SPOKE WITH [facility] AND THEY STATED THEY HAD NOT RECEIVED PRE-AUTH YET FOR ZYVOX. PER RX, INSTRUCTED PT THAT IF THEY HEAR ANYTHING TONIGHT, THEY WILL CALL PT. IF SHE DOESN'T HEAR ANYTHING BY MORNING, CALLED [facility] AND ASK THEM TO RUN INSURANCE AGAIN. PT VOICES UNDERSTANDING.
--- NOTE | 2018-11-04 16:17 | CASEMGMT ---
Prior auth still not received back via fax or call at this time. Call to [facility] retail pharmacy and Niesha states that PA has still not come through when they run med but she states out of pocket is $49, if pt wants to pay or at least get some. Per Makeda HARPER, pt is anxious to leave and pt updated on all at this time by RN. Per Makeda HARPER, pt chose to leave at this time and will get a few to get to tomorrow and then will call back in tomorrow to see if PA obtained. Ilene HARPER CM
--- NOTE | 2018-11-05 10:31 | CASEMGMT ---
Per [facility] retail pharmacy, pt's PA has not gone through at this time. This RN BERNADETTE then received call from [facility] [employer] stating that they needed Dx codes on form at this time. Dx codes added to form and form faxed back to [facility] at this time. Ilene HARPER CM
--- NOTE | 2018-11-06 09:49 | CASEMGMT ---
This RN CM finally received insurance PA for zyvox at this time and call to Matt in the [facility] retail pharmacy to notify of same. Initially, Matt stated she that when she tried to run through insurance, it stated that [facility] retail pharmacy was not a provider but pt's other scripts went through fine at discharge. This RN CM then received a call back from Matt stating that the scirpt went through and that she would be contacting pt at this time. SStnelsy HARPER CM
== END 2018-11-04 16:10 | disposition home or self-care (01) | DRG 720 ==
LOC: ED 04:08 → PCU 05:12
PROVIDERS: Internal Medicine; Internal Medicine Infectious Disease; Physician Assistant; Admitting Provider Hospitalist; Emergency Provider Emergency Medicine; Referring Provider Hospitalist; Visit Provider Internal Medicine
DX: A41.02 Sepsis due to Methicillin resistant Staphylococcus aureus (principal); R65.20 Severe sepsis without septic shock; N12 Tubulo-interstitial nephritis, not specified as acute or chronic; E87.6 Hypokalemia; E87.1 Hypo-osmolality and hyponatremia; B96.1 Klebsiella pneumoniae [K. pneumoniae] as the cause of diseases classified elsewhere; F17.210 Nicotine dependence, cigarettes, uncomplicated; B19.20 Unspecified viral hepatitis C without hepatic coma; F11.23 Opioid dependence with withdrawal
CPT/HCPCS: 36415; 36600; 71045; 80048; 80053; 80202; 81001; 82040; 82803; 83605; 83735; 84484; 85025; 85610; 86703; 87040; 87077; 87086; 87088; 87149; 87186; 87522; 93005; 93306; 93312; 93320; 93325; 97802; 99285; 99406; J7030; J7040; J7050; A4216; J0696; J2405

== ENCOUNTER 2018-11-30 20:39 | Emergency (ER) | payer MEDICAID, SELFPAY ==
[2018-11-01 08:01] VITALS: BMI 24.0
[2018-11-30 20:39] VITALS: BP 120/71; PULSE 106; RESP 15; TEMP 36.9; O2SAT 100; BMI 23.3
--- NOTE | 2018-11-30 20:57 | RAD_ITS ---
HISTORY: LEFT ANKLE TO KNEE PAIN FROM INJURY TODAY EXAM: Right Knee COMPARISON: None FINDINGS: # of images incl. paperwork: 3 The joint spaces are well-maintained. No fracture or subluxation. The patellofemoral joint has a normal appearance. No joint effusion is seen. RAD/Tibia & Fibula 2 Views IMPRESSION: Normal right knee. at 2152 Reported and signed by: Agusto Malhotra MD Electronically Signed: Agusto Malhotra MD at 21:51 EDT Tel , Service support ,
--- NOTE | 2018-11-30 21:05 | RAD_ITS ---
HISTORY: LEFT ANKLE TO KNEE PAIN FROM INJURY TODAY COMPARISON: None FINDINGS: # of images incl. paperwork: 3 XR Ankle Min 3 Views : A metallic foreign body is suspected within the soft tissues medial to the distal end of the first metatarsal. No fracture or osseous abnormality. The ankle mortise is intact. Soft tissue swelling is is present about the ankle, anteriorly and laterally.. RAD/Ankle min 3 Views IMPRESSION: No evidence of acute fracture or dislocation to the left ankle. On one image there appears to be metallic foreign body measuring about 1 x 3 mm within the soft tissue medial to the distal end of the first metatarsal at 2644 Reported and signed by: Agusto Malhotra MD Electronically Signed: Agusto Malhotra MD at 21:53 EDT Tel , Service support ,
[2018-11-30] MEDS: Ibuprofen 600 MG Tablet PO (21:14)
--- NOTE | 2018-11-30 21:28 | ED.DCSUM_ITS ---
- ER Visit Summary Date of Service: 11/30/18 Chief Complaint: Left ankle pain History of Present Illness: The patient is a 28 F with no primary care physician. She reports that she slipped and fell down the steps. She reports that the only injury is her left ankle. She reports she has a sharp, aching jacobo n is 10 on 10 severity. Is worsened by walking relieved by rest. She has not taken anything for pain. She denies any paresthesias or weakness distally. She denies any other injuries. No blood in the head or loss of consciousness. No neck, back, wrist, hip pain. Physical Examination: Vitals: Stable. Afebrile. Neck: No vertebral tenderness. Full ROM without difficulty. Cleared by NEXUS criteria. Back: No vertebral tenderness. General: A&O x 3. NAD. Cardiovascular exam: Regular rate and rhythm, no murmur, rub or gallop. Respiratory exam: Chest nontender. No crepitus. Clear to auscultation bilaterally. No wheezes or stridor. Abdominal exam: Soft, nontender, nondistended, normal bowel sounds. No pain in RUQ or LUQ specifically. No peritoneal signs. Extremity: Moderate tenderness palpation over the lateral malleolus on the left. Mild test palpation over the medial malleolus. Mild tenderness palpation over the proximal fibula. No pain over the base the fifth metatarsal. She has a 2+ dorsalis pedis pulse. She is neurovascular intact distal to this.. Test Results: Left ankle and tibia/fibula x-ray show no acute disease. Emergency Department Course and Treatment: Patient was treated with ibuprofen. She refused crutches. Treatment Plan: Patient be discharged instructions Tylenol and/or ibuprofen for pain. Follow-up with the [facility] in 1 week if not improving. Return to the emergency department for any worsening symptoms. Disposition: To home in improved and stable condition. Impression: 1. Fall. 2. Left ankle sprain. This note was generated with [employer] dictation software. It may contain incorrect words, spelling, and punctuation that were not noted in review of the chart prior to signing ED Disposition - Plan for ED Patient: Instructions: Sprain, Ankle, with X-Ray Referrals: Mary Bridges [NON-STAFF] - 1 Week if not improving
--- NOTE | 2018-11-30 22:07 | ED.RN ---
dr. hastings to bedside to explain xray results. pt not in the room. pt left without d/c instructions.
== END 2018-11-30 22:08 | disposition home or self-care (01) ==
LOC: ED 21:35
PROVIDERS: Emergency Provider Emergency Medicine
DX: S93.402A Sprain of unspecified ligament of left ankle, initial encounter (principal); M79.5 Residual foreign body in soft tissue; W10.9XXA Fall (on) (from) unspecified stairs and steps, initial encounter; Y93.9 Activity, unspecified; Y92.9 Unspecified place or not applicable; Y99.9 Unspecified external cause status; Z72.0 Tobacco use
CPT/HCPCS: 73590; 73610; 99282